=== PATIENT | male | born 1970 | race Caucasian/White ===

== ENCOUNTER 2018-08-05 05:31 | Inpatient (IN) | payer OTHER ==
[2018-07-31 16:58] VITALS: BMI 41.5
[~2018-08-05 05:31] MED LIST: BUPIVACAINE HCL/PF 0.25% (2.5MG/ML) 10 ML VIAL IJ ONE; BUPIVACAINE LIPOSOME/PF (EXPAREL) 266 MG/20 ML VIAL NR ONE
[2018-08-05] MEDS ORDERED: ceFAZolin SODIUM 1 GM VIAL ONE ×4 (07:16→18:06)
[2018-08-05] MEDS ORDERED: GENTAMICIN SO4 80 MG/2 ML VIAL ONE ×2 (07:16→12:21)
[2018-08-05] MEDS ORDERED: THROMBIN (BOVINE) 20,000 UNIT VIAL TP ONE (07:16)
[2018-08-05] MEDS ORDERED: MIDAZOLAM HCL 2 MG/2 ML SINGLE DOSE VIAL ONE (07:50)
--- NOTE | 2018-08-05 08:26 | HP ---
Language line was used for the following H&P #[id number] CHIEF COMPLAINT: Lumbar back pain, Right LE pain and paresthesias/weakness. PCP: Rashad Deng HISTORY OF PRESENT ILLNESS: 48yo male c/o Chronic progressive back pain x 10 years presents for elective surgery Patient had thoracic (T3-T5) and lumbar (L2 -L5) fusions @ [address] 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 He describes episodes of intermittent paresthesias and worsening weakness resulting in falls. He denies any bladder of bowel dysfunction. Recent Travel: none PAST MEDICAL HISTORY: none reported PAST SURGICAL HISTORY: T3-T 5 Fusion L2-L5 Fusion Social History: Smoking:none Alcohol:social Drugs: none Allergies No Known Allergies Allergy (Verified 08/05/18 06:31) HOME MEDICATIONS: Home Medications Medication Instructions Recorded NK [No Known Home Medication] 07/31/18 REVIEW OF SYSTEMS CONSTITUTIONAL: Absent: fever, chills, diaphoresis, generalized weakness, malaise, HEENT: Absent: rhinorrhea, nasal congestion, throat pain, throat swelling, difficulty swallowing, CARDIOVASCULAR: Absent: chest pain, syncope, palpitations, irregular heart rate, RESPIRATORY: Absent: cough, shortness of breath, dyspnea with exertion, orthopnea, GASTROINTESTINAL: Absent: abdominal pain, abdominal distension, nausea, vomiting, diarrhea, constipation, GENITOURINARY: Absent: dysuria, frequency, urgency, hesitancy MUSCULOSKELETAL: Absent: myalgia, arthralgia, joint swelling, SKIN: Absent: rash, itching, pallor HEMATOLOGIC/IMMUNOLOGIC: Absent: easy bleeding, easy bruising, ENDOCRINE: Absent: unexplained weight loss, heat intolerance, cold intolerance NEUROLOGIC: Absent: headache, + Right LE weakness and paresthesias, dizziness, unsteady gait, bladder or bowel incontinence PSYCHIATRIC: Absent: anxiety, depression, suicidal or homicidal ideation, hallucinations. PHYSICAL EXAMINATION Vital Signs - 24 hr 08/05/18 08/05/18 06:38 06:39 Temperature 98.2 F Pulse Rate 71 Respiratory 16 Rate Blood Pressure 125/79 O2 Sat by Pulse 99 Oximetry (%) GENERAL: Awake, alert, and fully oriented, in no acute distress. HEAD: Normal with no signs of trauma. EYES: extraocular movements intact, sclera anicteric, conjunctiva clear. No lid lag. EARS, NOSE, THROAT: Ears normal, nares patent, oropharynx clear without exudates. Moist mucous membranes. NECK: supple without lymphadenopathy, JVD, or masses. LUNGS: Breath sounds equal, clear to auscultation bilaterally. No wheezes, and no crackles. No accessory muscle use. HEART: normal S1 and S2 without murmur, rub or gallop. ABDOMEN: Obese, Soft, nontender, not distended, normoactive bowel sounds, MUSCULOSKELETAL: No bony deformities or tenderness. No CVA tenderness. UPPER EXTREMITIES: 2+ pulses, warm, well-perfused. No cyanosis. No clubbing. No peripheral edema. LOWER EXTREMITIES: 2+ pulses, warm, well-perfused. No calf tenderness. No peripheral edema, 5/5 dorsi/plantar flexion. Negative SLE B/L NEUROLOGICAL: Cranial nerves II-XII intact. Normal speech. PSYCHIATRIC: Cooperative. Good eye contact. Appropriate mood and affect. SKIN: Warm, dry, normal turgor, no rashes or lesions noted, normal capillary refill. Laboratory Results - last 24 hr 08/05/18 06:16 Blood Type O POSITIVE Antibody Screen Negative MRI and CT scans reviewed by Dr Cervantes in office reveal persist Thoracic spondylosis, calcified PLL and disc as as well as facet hypertrophy and coronal deformity. ASSESSMENT/PLAN: As discussed with Dr Cervantes in detail during pre-op visit on 07/23/18. DX:Thoracic splondylosis and Kyphosis Plan: Exploration of spinal fusion, removal or hardware and T3-T9 decompression (re-operative laminectomies and T3-T5) with multilevel transpedicle/ costovertebral decompressoin T67, T78, T89, Including complete decompression behind T7, osteotomies, and T3-T9 posterior instrumented fusion and deformity correction The R/B/A were discussed at length with the patient and his family and all questions were answered. The patient elected to proceed with the above mentioned procedure. Patient pre operative testing and clearance was preformed by Dr Mitchell- please see chart Problem List - Problem (1) Thoracic spondylosis Assessment/Plan: Patient denies any changes in health/ history since his pre-op visit with Dr Mitchell. Will proceed with the surgery as planned. Code(s): M47.814 - SPONDYLOSIS W/O MYELOPATHY OR RADICULOPATHY, THORACIC REGION Visit type - Emergency Visit Emergency Visit: No - New Patient This patient is new to me today: Yes Date on this admission: 08/05/18 - Critical Care Critical Care patient: No
[2018-08-05] MEDS ORDERED: fentaNYL CITRATE 250 MCG/5 ML VIAL ONE ×2 (08:34→09:26)
[2018-08-05] MEDS ORDERED: PROPOFOL 20 ML ONE ×2 (08:36)
[2018-08-05] MEDS ORDERED: ROCURONIUM BROMIDE 50 MG/5 ML VIAL ONE ×4 (08:36→12:15)
[2018-08-05] MEDS ORDERED: DEXAMETHASONE SOD PHOSPHATE 4 MG/1 ML VIAL ONE (08:36)
[2018-08-05] MEDS ORDERED: LIDOCAINE HCL/PF 2% SDV 5ML VIAL ONE (08:39)
[2018-08-05] MEDS ORDERED: VANCOMYCIN 1,000 MG VIAL (RESTRICTED TO ID ONLY) ONE (09:04)
[2018-08-05] MEDS ORDERED: LIDOCAINE 1%/EPI 1:100000 (20 ML MULTI DOSE VIAL) IJ ONE (09:06)
[2018-08-05] MEDS ORDERED: HYDROGEN PEROXIDE 473 ML PO ONE ×2 (09:33→11:55)
[2018-08-05] MEDS ORDERED: GELATIN, ABSORBABLE 12-7MM EACH SPONGE TP ONE (09:35)
[2018-08-05] MEDS ORDERED: GENTAMICIN SO4 80 MG/2 ML VIAL IVPB ONE ×2 (09:35→11:55)
[2018-08-05] MEDS ORDERED: BACITRACIN 50,000 UNITS VIAL TP ONE ×2 (09:35→11:55)
[2018-08-05] MEDS ORDERED: ceFAZolin SODIUM 1 GM VIAL IVPB ONE ×2 (09:38→11:38)
[2018-08-05] MEDS ORDERED: THROMBIN (BOVINE) 5,000 UNIT VIAL TP ONE (09:53)
[2018-08-05] MEDS ORDERED: BUPIVACAINE HCL/PF 0.25% (2.5MG/ML) 10 ML VIAL ONE (11:40)
[2018-08-05] MEDS ORDERED: BUPIVACAINE LIPOSOME/PF (EXPAREL) 266 MG/20 ML VIAL NR ONE ×2 (12:00→15:04)
[2018-08-05] MEDS ORDERED: GELATIN, ABSORBABLE 100 EACH SPONGE TP ONE (12:02)
[2018-08-05] MEDS ORDERED: BUPIVACAINE HCL/PF 0.25% (2.5MG/ML) 10 ML VIAL IJ ONE (15:04)
[2018-08-05] MEDS ORDERED: ONDANSETRON 4 MG/2 ML VIAL ONE (15:06)
[2018-08-05] MEDS ORDERED: NEOSTIGMINE METHYLSULFATE 0.5 MG/1 ML - 10 ML MDV ONE (15:23)
[2018-08-05] MEDS ORDERED: GLYCOPYRROLATE 0.2 MG/1 ML VIAL ONE (15:23)
[2018-08-05] MEDS ORDERED: ONDANSETRON 4 MG/2 ML VIAL IVPUSH PRN ×3 (16:07→16:33)
[2018-08-05] MEDS ORDERED: LACTATED RINGERS SOLUTION 1,000 ML IV SCH (16:15)
[2018-08-05] MEDS ORDERED: DEXAMETHASONE SOD PHOSPHATE 4 MG/1 ML VIAL IVPUSH PRN (16:21)
[2018-08-05] MEDS ORDERED: PROMETHAZINE HCL 25 MG/1 ML VIAL IVPB PRN (16:21)
[2018-08-05] MEDS ORDERED: HYDROmorphone HCl 2 MG/ML VIAL IVPUSH PRN (16:31)
[2018-08-05] MEDS ORDERED: HYDROmorphone *PCA* 10MG/50ML DISP.SYRIN PCA ONE (16:32)
[2018-08-05] MEDS ORDERED: diphenhydrAMINE HCL 25 MG CAPSULE (FP) PO PRN (16:33)
[2018-08-05] MEDS ORDERED: LORazepam 2 MG/ML SDV VIAL ONE (16:33)
[2018-08-05] MEDS: LORazepam 2 MG/ML SDV VIAL IVPUSH PRN ×2 (16:35→16:45)
[2018-08-05] MEDS: HYDROmorphone *PCA* 10MG/50ML DISP.SYRIN PCA SCH (17:00)
[2018-08-05] MEDS: HEPARIN NA (PORCINE) 5,000 UNITS/ML 1ML VIAL SQ SCH (22:56)
[2018-08-05] MEDS: DOCUSATE SODIUM 100 MG CAPSULE (FP) PO SCH (22:56)
[2018-08-06] MEDS: HEPARIN NA (PORCINE) 5,000 UNITS/ML 1ML VIAL SQ SCH ×3 (05:47→21:57)
[2018-08-06] MEDS: LACTATED RINGERS SOLUTION 1,000 ML/1,000 ML INFUS.BAG IV SCH ×2 (05:47→17:55)
[2018-08-06] MEDS: DOCUSATE SODIUM 100 MG CAPSULE (FP) PO SCH ×3 (05:47→21:57)
[2018-08-06] MEDS ORDERED: DEXTROSE 5%-WATER - 50 ML IVPB ONE ×3 (06:09→17:28)
[2018-08-06] MEDS ORDERED: ceFAZolin SODIUM 1 GM VIAL ONE ×3 (06:09→17:28)
[2018-08-06] MEDS: CEFAZOLIN 1 GM in DEXTROSE 5%-WATER - 50 ML IVPB SCH ×5 (06:12→17:56)
[2018-08-06 07:54] LABS: HEMATOCRIT 31.1 % (35.4-49); HEMOGLOBIN 10.5 GM/dL (11.7-16.9); MCH 30.2 pg (25.7-33.7); MCHC 33.6 g/dl (32.0-35.9); MEAN CELL VOLUME 89.7 fl (80-96); MEAN PLT VOLUME 10.8 fl (7.5-11.1); PLATELET COUNT 133 K/MM3 (134-434); RBC 3.47 M/mm3 (4.00-5.60); RDW 13.7 % (11.9-15.9); WHITE BLOOD COUNT 7.8 K/mm3 (4.0-10.0)
[2018-08-06 08:36] LABS: BLOOD UREA NITROGEN 15 mg/dL (7-18); CO2 30 mmol/L (21-32); POTASSIUM 4.2 mmol/L (3.5-5.1)
--- NOTE | 2018-08-06 08:53 | PN ---
Progress Note (short form) - Note Progress Note: Surgery POD#1 Exploration of spinal fusion, removal or hardware and T3-T9 decompression (re-operative laminectomies and T3-T5) with multilevel transpedicle/costovertebral decompressoin T67, T78, T89, Including complete decompression behind T7, osteotomies, and T3-T9 posterior instrumented fusion and deformity correction patient seen and examined at bedside. He c/o right shoulder discomfort and abdominal/gas pain. He tolerated his clear diet and denies any nausea or vomiting. He denies any UE radiculopathy, new LE radiculopathy or paresthesias, Headache, fever, chills, CP, SOB, or blurred vision. He still has the robins. Vital Signs Temp 98.1 F 08/06/18 10:00 Pulse 92 H 08/06/18 10:00 Resp 18 08/06/18 10:00 BP 136/82 08/06/18 10:00 Pulse Ox 99 08/06/18 09:00 Intake & Output 08/05/18 08/06/18 08/06/18 23:59 11:59 23:59 Intake Total 1175 380 Output Total 1585 620 Balance -410 -240 Intake: IV 1175 LACTATED RINGERS SOLUTION 375 1,000 ml In 1,000 ml @ 125 mls/hr IV ASDIR [facility] Rx#:[id number] Oral 380 Output: Drainage 285 220 Medial Back 110 220 Urine 1300 400 Robins 600 400 Other: Voiding Method Indwelling Catheter Urinal CBC, BMP Abnormal Lab Results 08/06/18 08/06/18 06:30 06:30 RBC 3.47 L Hgb 10.5 L Hct 31.1 L D Plt Count 133 L D Anion Gap 7 L Calcium 7.8 L AST 134 H Total Protein 5.8 L Albumin 3.2 L PE: A&Ox3, NAD Unlabored resp on RA Right shoulder no evidence of erythema, edema or eccymosis. TTP over anterior aspect, active forward elevation to @90 degrees limited by pain blocking, PROM forward elevation to 120 degrees, mild ttp over a/c joint. PROM abduction to 130 degrees with some pain blocking. no apprehension or laxity on exam. spine dressing c/d/i with aquacell dressing, flat with surrounding tissue intact , no evidence of tracking erythema, edema, or collection. Drain securely in place with bloody d/c-330cc post op. B/L LE Neg SLR, 5/5 quad strength, LE compartments soft, supple and non-tender with +2 DP pulsees, 5/5 dorsi/plantar flexion, sensation to light touch intact throughout. Problem List - Problems (1) Thoracic spondylosis Assessment/Plan: s/p T3-T9 lami/decompression and fusion. Patient doing well with right shoulder discomfort, stiffness, and gas pain possibly from length of anesthesia and positioning. 1) d/c robins with PVR, bladder scan. 2) OOB with TLSO brace adn PT 3) encourage ambulation and IS 4) Warm compress to right shoulder PRN encourage ROM 5) DVT prophylaxis 6) pain control Evaluation and plan discussed with Dr Cervantes Code(s): M47.814 - SPONDYLOSIS W/O MYELOPATHY OR RADICULOPATHY, THORACIC REGION
--- NOTE | 2018-08-06 08:58 | PN ---
Physical Exam: SUBJECTIVE: Patient seen and examined at the bedside. Resting comfortably, c/o of right shoulder pain and tenderness. also having abdominal pain/discomfort. no nausea/no vomiting. not yet passing gas. last bm yesterday OBJECTIVE: for shoulder discomfort, will order lidoderm patch for localized pain/ tenderness. no bruising noted. patient can move his arm but limited secondary to pain. for abdominal pain/discomfort. encourage pt to get oob to chair or ambulate with PT. simethicone ordered patient given and shown how to use incentive spirometer, encouraged to use it hourly. Vital Signs Period Temp Pulse Resp BP Sys/Augustin Pulse Ox Last 24 Hr 97.9 F-98.9 F 80-108 14-22 126-164/74-97 95-100 GENERAL: The patient is awake, alert, and fully oriented, in no acute distress. HEAD: Normal with no signs of trauma. EYES: PERRL, extraocular movements intact, sclera anicteric, conjunctiva clear. No ptosis. ENT: Ears normal, nares patent, oropharynx clear without exudates, moist mucous membranes. NECK: Trachea midline, full range of motion, supple. LUNGS: Breath sounds equal, clear to auscultation bilaterally HEART: Regular rate and rhythm ABDOMEN: soft, mildly tender to touch, no nausea or vomiting. monitor for now. encourage pt to get oob to chair. minimize use of narcotics as tolerated. EXTREMITIES: no edema. on SCDs, right arm tender to touch, likely secondary to prolonged surgery. lidoderm patch applied. NEUROLOGICAL: Normal speech, gait not observed. PSYCH: Normal mood, normal affect. SKIN: Warm, dry, normal turgor, no rashes or lesions noted Laboratory Results - last 24 hr 08/06/18 08/06/18 08/06/18 06:30 06:30 08:34 WBC 7.8 Cancelled Corrected WBC (auto) Cancelled RBC 3.47 L Cancelled Hgb 10.5 L Cancelled Hct 31.1 L D Cancelled MCV 89.7 Cancelled MCH 30.2 Cancelled MCHC 33.6 Cancelled RDW 13.7 Cancelled Plt Count 133 L D Cancelled MPV 10.8 Cancelled Absolute Neuts (auto) Cancelled Neutrophils % Cancelled Lymphocytes % Cancelled Monocytes % Cancelled Eosinophils % Cancelled Basophils % Cancelled Nucleated RBC % Cancelled Platelet Estimate Cancelled Platelet Comment Cancelled Sodium 136 Potassium 4.2 Chloride 99 Carbon Dioxide 30 Anion Gap 8 BUN 15 Creatinine 0.6 Creat Clearance w eGFR > 60 Random Glucose 99 Calcium 7.6 L Magnesium Total Bilirubin AST ALT Alkaline Phosphatase Total Protein Albumin 08/06/18 08:34 WBC Corrected WBC (auto) RBC Hgb Hct MCV MCH MCHC RDW Plt Count MPV Absolute Neuts (auto) Neutrophils % Lymphocytes % Monocytes % Eosinophils % Basophils % Nucleated RBC % Platelet Estimate Platelet Comment Sodium Cancelled Potassium Cancelled Chloride Cancelled Carbon Dioxide Cancelled Anion Gap Cancelled BUN Cancelled Creatinine Cancelled Creat Clearance w eGFR Cancelled Random Glucose Cancelled Calcium Cancelled Magnesium Cancelled Total Bilirubin Cancelled AST Cancelled ALT Cancelled Alkaline Phosphatase Cancelled Total Protein Cancelled Albumin Cancelled Active Medications Generic Name Dose Route Start Last Admin Trade Name Freq PRN Reason Stop Dose Admin Dexamethasone Sodium Phosphate 4 mg 08/05/18 16:21 Decadron Injection - IVPUSH ONCE PRN NAUSEA AND/OR VOMITING Diphenhydramine HCl 12.5 mg 08/05/18 16:21 Benadryl Injection - IVPUSH ONCE PRN FOR ITCHING Diphenhydramine HCl 25 mg 08/05/18 16:33 Benadryl - PO Q6H PRN FOR ITCHING Docusate Sodium 100 mg 08/05/18 22:00 08/06/18 05:47 Colace - PO 100 mg TID MENDY Administration Fentanyl 50 mcg 08/05/18 16:07 08/05/18 16:40 Sublimaze Injection - IVPUSH 50 mcg [id number] PRN Administration PAIN-PACU ORDER X 4 DOSES ONLY Ferrous Sulfate 325 mg 08/06/18 10:00 Feosol - PO DAILY MENDY Folic Acid 1 mg 08/06/18 10:00 Folic Acid - PO DAILY MENDY Heparin Sodium (Porcine) 5,000 unit 08/05/18 22:00 08/06/18 05:47 Heparin - SQ 5,000 unit TID MENDY Administration Hydromorphone HCl 10 mg 08/05/18 16:30 08/05/18 17:00 Dilaudid Administrative Sales Assistant - REBAR BENDER 08/12/18 16:21 10 mg REBAR BENDER MENDY Administration Protocol Hydromorphone HCl 2 mg 08/05/18 16:31 08/05/18 17:50 Dilaudid Vial - IVPUSH 08/06/18 16:30 0.4 mg ONCE PRN Administration PAIN-PACU Cefazolin Sodium 1 gm/ 50 mls @ 100 mls/hr 08/05/18 19:30 08/06/18 06:15 Dextrose IVPB Not Given Q8H-IV MENDY Lactated Ringer's 1,000 ml in 1,000 mls @ 125 mls/hr 08/05/18 16:45 08/06/18 05:47 Lactated Ringers Solution IV 125 mls/hr ASDIR MENDY Administration Influenza Virus Vaccine Quadrival 60 mcg 08/06/18 09:00 Flulaval Quad [id number] IM 08/06/18 09:01 .ONCE ONE Lorazepam 2 mg 08/05/18 16:32 08/05/18 16:45 Ativan Injection - IVPUSH 08/06/18 16:31 1 mg ONCE PRN Administration AGITATION Ondansetron HCl 4 mg 08/05/18 16:21 Zofran Injection IVPUSH Q4H PRN NAUSEA AND/OR VOMITING Ondansetron HCl 4 mg 08/05/18 16:33 Zofran Injection IVPUSH Q6H PRN NAUSEA Promethazine HCl 12.5 mg 08/05/18 16:21 Phenergan Injection - IVPB Q6H PRN NAUSEA AND/OR VOMITING Simethicone 80 mg 08/06/18 08:48 Mylicon - PO Q4H PRN GAS ASSESSMENT/PLAN: Patient is a 48 year old male with a past medical history of chronic progressive back pain. He presented on 08/05/2018 for elective back surgery and is POD #1 of exploration of spinal fusion, removal or hardware and T3-T9 decompression (re- operative laminectomies and T3-T5) with multilevel transpedicle/costovertebral decompressoin T67, T78, T89, complete decompression behind T7, osteotomies, and T3-T9 posterior instrumented fusion and deformity correction. Surgery: Back Surgery, POD#1 Post op monitoring Monitor labs, vitals signs, pain scale initiate bowel regimen monitor drain output pain management with dilaudid quality compliance consultant incentive spirometer q1 hours physical therapy fen: regular diet monitor electrolytes no ivf prophy: SCDs protonix simethicone full code Visit type - Emergency Visit Emergency Visit: Yes ED Registration Date: 08/05/18 Care time: The patient presented to the Emergency Department on the above date and was hospitalized for further evaluation of their emergent condition. - New Patient This patient is new to me today: Yes Date on this admission: 08/06/18 - Critical Care Critical Care patient: No - Discharge Referral Referred to [facility] No
[2018-08-06] MEDS ORDERED: FLU VACCINE QUAD 60 MCG/0.5 ML (MDV 18-19) IM ONE (09:00)
[2018-08-06 09:14] LABS: ALBUMIN 3.2 g/dl (3.4-5.0); ALK PHOS 85 U/L (45-117); ANION GAP 7 MMOL/L (8-16); BILIRUBIN,TOTAL 0.6 mg/dL (0.2-1); CALCIUM 7.8 mg/dL (8.5-10.1); CHLORIDE 100 mmol/L (98-107); CREATININE 0.7 mg/dL (0.55-1.3); GLUCOSE,RANDOM 102 mg/dL (74-106); MAGNESIUM 1.9 mg/dL (1.8-2.4); SGOT/AST 134 U/L (15-37); SGPT/ALT 57 U/L (13-61); SODIUM 137 mmol/L (136-145); TOT PROT 5.8 g/dl (6.4-8.2)
[2018-08-06] MEDS ORDERED: SIMETHICONE 80 MG TAB.CHEW (FP) PO ONE ×2 (09:23)
[2018-08-06] MEDS: FERROUS SO4 325 MG TABLET (FP) PO SCH (10:22)
[2018-08-06] MEDS: PANTOPRAZOLE 40 MG TABLET (FP) PO SCH (10:22)
[2018-08-06] MEDS: LIDOCAINE 5% TOPICAL PATCH TP SCH (10:22)
[2018-08-06] MEDS: FOLIC ACID 1 MG TABLET (FP) PO SCH (10:22)
[2018-08-06] MEDS: POLYETHYLENE GLYCOL 3350 119 GM BTL PO SCH (10:23)
[2018-08-06] MEDS: ACETAMINOPHEN 325 MG TABLET (FP) PO PRN (14:04)
[2018-08-06] MEDS: SIMETHICONE 80 MG TAB.CHEW (FP) PO PRN (14:05)
--- NOTE | 2018-08-06 14:27 | OP ---
Operative Note - Note: Operative Date: 08/05/18 Pre-Operative Diagnosis: splodylosis and kyphosis Operation: Exploration of spinal fusion, removal or hardware and T3-T9 decompression (re-operative laminectomies and T3-T5) with multilevel transpedicle/costovertebral decompressoin T67, T78, T89, Including complete decompression behind T7, osteotomies, and T3-T9 posterior instrumented fusion and deformity correction Post-Operative Diagnosis: Same as Pre-op Surgeon: Latrell Cervantes Strategy Execution Consultant: Nirali Wei Anesthesiologist/INFORMATION TECHNOLOGY INSTRUCTOR: Hussein Banks Anesthesia: General Estimated Blood Loss (mls): 400 Drains & Tubes with Location: J/P right mid back Drains, Volume Out (mls): 352 (robins) Fluid Volume Replaced (mls): 4,500
--- NOTE | 2018-08-06 16:06 | PN ---
Progress Note (short form) - Note Progress Note: Post op day#1.S/P T3-T9 Removal of hardware with revision of decompression and fusion under GA uneventful.Patient stable and c/o pain score of 4-5/10 while resting on Dilaudid RAILROAD REPAIRER.Will continue RAILROAD REPAIRER today and will f/u tomorrow.
[2018-08-06] MEDS: HYDROmorphone *PCA* 10MG/50ML DISP.SYRIN PCA SCH (17:54)
[2018-08-06] MEDS: LIDOCAINE PATCH REMOVAL MC SCH (21:57)
[2018-08-07] MEDS ORDERED: ceFAZolin SODIUM 1 GM VIAL ONE ×3 (01:35→17:33)
[2018-08-07] MEDS ORDERED: DEXTROSE 5%-WATER - 50 ML IVPB ONE ×3 (01:35→17:33)
[2018-08-07] MEDS: CEFAZOLIN 1 GM in DEXTROSE 5%-WATER - 50 ML IVPB SCH ×3 (02:19→17:56)
[2018-08-07] MEDS: HEPARIN NA (PORCINE) 5,000 UNITS/ML 1ML VIAL SQ SCH ×3 (05:33→22:13)
[2018-08-07] MEDS: DOCUSATE SODIUM 100 MG CAPSULE (FP) PO SCH ×3 (05:33→22:13)
[2018-08-07] MEDS: SIMETHICONE 80 MG TAB.CHEW (FP) PO PRN ×3 (05:36→22:23)
--- NOTE | 2018-08-07 08:58 | CON.ORTH ---
Consult Reason for Consultation:: right shoulder pain s/p revision thoracic spine surgery - Alcohol/Substance Use Hx Alcohol Use: Yes (social) - Smoking History Smoking history: Never smoked Home Medications - Allergies Allergies/Adverse Reactions: Allergies Allergy/AdvReac Type Severity Reaction Status Date / Time No Known Allergies Allergy Verified 08/05/18 06:31 - Home Medications Home Medications: Ambulatory Orders NK [No Known Home Medication] 07/31/18 Physical Exam for Ortho Vital Signs: Vital Signs Temperature 98.3 F 08/07/18 06:47 Pulse Rate 91 H 08/07/18 06:47 Respiratory Rate 20 08/07/18 06:47 Blood Pressure 130/65 08/07/18 06:47 O2 Sat by Pulse Oximetry (%) 99 08/06/18 21:00 Labs: CBC, BMP 08/06/18 08:34 08/06/18 08:34 - Upper Extremity Shoulder: Yes: Right, Other (mild ttp, ROM FF 170, ER 40, IR L5, neg empty can, - neer,-merchant, - obriens, -speeds/yerg, strength 5/5, nvi) Assessment/Plan 48 yo male s/p Exploration of spinal fusion, removal or hardware and T3-T9 decompression (re-operative laminectomies and T3-T5) with multilevel transpedicle/costovertebral decompressoin T67, T78, T89, Including complete decompression behind T7, osteotomies, and T3-T9 posterior instrumented fusion and deformity correction. c/o pain in right shoulder since the operation. Pt states that the pain is much improved today. Denies any h/o shoulder pain prior to the operation. Given complexity of the operation, pt was supine for a long period of time. a/p right shoulder pain- positional d/w with pt in detail, shoulder pain is much improved NTD orthopedically ROM exercises Pt can f/u as outpt if pain has not completely resolved over the next few weeks d/w Dr. Vo
[2018-08-07 09:21] LABS: BASO % 0.5 % (0-2.0); EOS % 0.3 % (0-4.5); HEMATOCRIT 30.8 % (35.4-49); HEMOGLOBIN 10.4 GM/dL (11.7-16.9); LYMPH % 19.5 % (8-40); MCHC 33.8 g/dl (32.0-35.9); MEAN PLT VOLUME 9.7 fl (7.5-11.1); MONO % 5.3 % (3.8-10.2); NEUT % 74.4 % (42.8-82.8); PLATELET COUNT 128 K/MM3 (134-434); RBC 3.46 M/mm3 (4.00-5.60); WHITE BLOOD COUNT 7.5 K/mm3 (4.0-10.0)
[2018-08-07] MEDS: LIDOCAINE 5% TOPICAL PATCH TP SCH (09:51)
[2018-08-07] MEDS: FOLIC ACID 1 MG TABLET (FP) PO SCH (09:52)
[2018-08-07] MEDS: PANTOPRAZOLE 40 MG TABLET (FP) PO SCH (09:52)
[2018-08-07] MEDS: FERROUS SO4 325 MG TABLET (FP) PO SCH (09:52)
[2018-08-07] MEDS: POLYETHYLENE GLYCOL 3350 119 GM BTL PO SCH (09:54)
[2018-08-07 10:05] LABS: ALBUMIN 3.3 g/dl (3.4-5.0); ALK PHOS 84 U/L (45-117); ANION GAP 7 MMOL/L (8-16); BILIRUBIN,TOTAL 0.6 mg/dL (0.2-1); BLOOD UREA NITROGEN 12 mg/dL (7-18); CALCIUM 7.9 mg/dL (8.5-10.1); CHLORIDE 100 mmol/L (98-107); CO2 29 mmol/L (21-32); CREATININE 0.8 mg/dL (0.55-1.3); GLUCOSE,RANDOM 132 mg/dL (74-106); MAGNESIUM 2.2 mg/dL (1.8-2.4); POTASSIUM 3.7 mmol/L (3.5-5.1); SGOT/AST 115 U/L (15-37); SGPT/ALT 54 U/L (13-61); SODIUM 135 mmol/L (136-145); TOT PROT 6.4 g/dl (6.4-8.2)
--- NOTE | 2018-08-07 11:24 | PN ---
Progress Note (short form) - Note Progress Note: Anesthesia/pain Pt seen and examined S:Alert and awake mild discomfort O: Vital Signs Temperature 98.3 F 08/07/18 06:47 Pulse Rate 91 H 08/07/18 06:47 Respiratory Rate 20 08/07/18 06:47 Blood Pressure 130/65 08/07/18 06:47 O2 Sat by Pulse Oximetry (%) 99 08/06/18 21:00 CBC, BMP 08/07/18 09:15 08/07/18 09:15 A/P Current Active Problems Thoracic spondylosis (Acute) s/pT3-T9 removal of hardware/correction and fusion Doing well post op Continue current care Continue ELECTRIC SIGN WIRER Que Conti MD
[2018-08-07] MEDS: HYDROmorphone *PCA* 10MG/50ML DISP.SYRIN PCA SCH ×2 (11:44→17:57)
--- NOTE | 2018-08-07 12:24 | PN ---
Physical Exam: SUBJECTIVE: Patient seen at the bedside. family present. sitting in chair. c/o of constipation and bloating, no nausea or vomiting. OBJECTIVE: right shoulder pain improved with lidoderm patch. seen by ortho. constipation: ordered dulcolax po and dulcolax pr. if not working will give mag citrate. Vital Signs Period Temp Pulse Resp BP Sys/Augustin Pulse Ox Last 24 Hr 98 F-99.2 F 88-117 18-20 121-140/65-84 99 GENERAL: The patient is awake, alert, and fully oriented, in no acute distress. HEAD: Normal with no signs of trauma. EYES: PERRL, extraocular movements intact, sclera anicteric, conjunctiva clear. No ptosis. ENT: Ears normal, nares patent, oropharynx clear without exudates, moist mucous membranes. NECK: Trachea midline, full range of motion, supple. LUNGS: Breath sounds equal, clear to auscultation bilaterally HEART: Regular rate and rhythm ABDOMEN: soft, mildly tender to touch, no nausea or vomiting. monitor for now. encourage pt to get oob to chair. minimize use of narcotics as tolerated. EXTREMITIES: no edema. on SCDs, right arm tender to touch, likely secondary to prolonged surgery. lidoderm patch applied. NEUROLOGICAL: Normal speech, gait not observed. PSYCH: Normal mood, normal affect. SKIN: Warm, dry, normal turgor, no rashes or lesions noted Laboratory Results - last 24 hr 08/06/18 08/07/18 08/07/18 06:30 09:15 09:15 WBC 7.5 RBC 3.46 L Hgb 10.4 L Hct 30.8 L MCV 89.0 MCH 30.0 MCHC 33.8 RDW 14.0 Plt Count 128 L MPV 9.7 D Absolute Neuts (auto) 5.5 Total Counted 100 Neutrophils % No Result Required. 74.4 Neutrophils % (Manual) 73.0 Band Neutrophils % 2.0 Lymphocytes % No Result Required. 19.5 D Lymphocytes % (Manual) 19.0 Monocytes % 5.3 Monocytes % (Manual) 6 Eosinophils % 0.3 D Basophils % 0.5 Nucleated RBC % 0 Sodium 135 L Potassium 3.7 Chloride 100 Carbon Dioxide 29 Anion Gap 7 L BUN 12 Creatinine 0.8 Creat Clearance w eGFR > 60 Random Glucose 132 H Calcium 7.9 L Magnesium 2.2 Total Bilirubin 0.6 AST 115 H ALT 54 Alkaline Phosphatase 84 Total Protein 6.4 Albumin 3.3 L Active Medications Generic Name Dose Route Start Last Admin Trade Name Shannon PRN Reason Stop Dose Admin Acetaminophen 650 mg 08/06/18 09:26 08/06/18 14:04 Tylenol - PO 650 mg Q6H PRN Administration PAIN LEVEL 4 - 6 Dexamethasone Sodium Phosphate 4 mg 08/05/18 16:21 Decadron Injection - IVPUSH ONCE PRN NAUSEA AND/OR VOMITING Diphenhydramine HCl 12.5 mg 08/05/18 16:21 Benadryl Injection - IVPUSH ONCE PRN FOR ITCHING Diphenhydramine HCl 25 mg 08/05/18 16:33 Benadryl - PO Q6H PRN FOR ITCHING Docusate Sodium 100 mg 08/05/18 22:00 08/07/18 05:33 Colace - PO 100 mg TID MENDY Administration Fentanyl 50 mcg 08/05/18 16:07 08/05/18 16:40 Sublimaze Injection - IVPUSH 50 mcg [id number] PRN Administration PAIN-PACU ORDER X 4 DOSES ONLY Ferrous Sulfate 325 mg 08/06/18 10:00 08/07/18 09:52 Feosol - PO 325 mg DAILY MENDY Administration Folic Acid 1 mg 08/06/18 10:00 08/07/18 09:52 Folic Acid - PO 1 mg DAILY MENDY Administration Heparin Sodium (Porcine) 5,000 unit 08/05/18 22:00 08/07/18 05:33 Heparin - SQ 5,000 unit TID MENDY Administration Hydromorphone HCl 10 mg 08/05/18 16:30 08/07/18 11:44 Dilaudid Sales Correspondent - RECEPTIONIST NURSE 08/12/18 16:21 Not Given RECEPTIONIST NURSE [facility] Protocol Cefazolin Sodium 1 gm/ 50 mls @ 100 mls/hr 08/05/18 19:30 08/07/18 09:52 Dextrose IVPB 100 mls/hr Q8H-IV MENDY Administration Lactated Ringer's 1,000 ml in 1,000 mls @ 125 mls/hr 08/05/18 16:45 08/06/18 17:55 Lactated Ringers Solution IV 125 mls/hr ASDIR MENDY Administration Lidocaine 1 patch 08/06/18 10:00 08/07/18 09:51 Lidoderm Patch - TP 1 patch DAILY MENDY Administration Miscellaneous 1 each 08/06/18 22:00 08/06/18 21:57 Lidoderm Patch Removal MC Not Given DAILY@2200 MENDY Ondansetron HCl 4 mg 08/05/18 16:21 Zofran Injection IVPUSH Q4H PRN NAUSEA AND/OR VOMITING Ondansetron HCl 4 mg 08/05/18 16:33 Zofran Injection IVPUSH Q6H PRN NAUSEA Pantoprazole Sodium 40 mg 08/06/18 10:00 08/07/18 09:52 Protonix - PO 40 mg DAILY MENDY Administration Polyethylene Glycol 17 gm 08/06/18 10:00 08/07/18 09:54 Miralax (For Daily Use) - PO 17 gm DAILY MENDY Administration Promethazine HCl 12.5 mg 08/05/18 16:21 Phenergan Injection - IVPB Q6H PRN NAUSEA AND/OR VOMITING Simethicone 80 mg 08/06/18 08:48 08/07/18 05:36 Mylicon - PO 80 mg Q4H PRN Administration GAS ASSESSMENT/PLAN: Patient is a 48 year old male with a past medical history of chronic progressive back pain. He presented on 08/05/2018 for elective back surgery and is POD #2 of exploration of spinal fusion, removal or hardware and T3-T9 decompression (re- operative laminectomies and T3-T5) with multilevel transpedicle/costovertebral decompressoin T67, T78, T89, complete decompression behind T7, osteotomies, and T3-T9 posterior instrumented fusion and deformity correction. Surgery: Back Surgery, POD#2 Post op monitoring, vitals and labs stable. c/o of constipation. dulcolax po and pr ordered. will give one dose of mag citrate. pain management with dilaudid linen clerk, consider transitioning off linen clerk to oral pain meds. incentive spirometer q1 hours physical therapy Right shoulder pain, improved lidoderm applied to right upper shoulder, pt states pain improved. seen by ortho, no new interventions at this time. encourage PT with upper arm ROM exercises. fen: regular diet monitor electrolytes no ivf prophy: SCDs protonix simethicone full code Visit type - Emergency Visit Emergency Visit: Yes ED Registration Date: 08/05/18 Care time: The patient presented to the Emergency Department on the above date and was hospitalized for further evaluation of their emergent condition. - New Patient This patient is new to me today: No - Critical Care Critical Care patient: No - Discharge Referral Referred to [facility] No
--- NOTE | 2018-08-07 12:28 | PN ---
Progress Note (short form) - Note Progress Note: 48M s/p T3-T9 fusion, POD 2. Pt seen and examined at bedside. Pt states that his back pain is well controlled. Denies weakness or numbness. Pt only complaining of some diffuse abd pain. States has not had BM since Saturday. Denies fever, chills, n/v. Last Vital Signs Temp Pulse Resp BP Pulse Ox 98.3 F 91 H 20 130/65 99 08/07/18 06:47 08/07/18 06:47 08/07/18 06:47 08/07/18 06:47 08/06/18 21:00 CBC, BMP 08/07/18 09:15 08/07/18 09:15 PE: Gen: A&O X3 Resp: breathing comfortably Abd: soft, mild distension, mild diffuse tenderness Back: incision clean and dry, no erythema. Drain in place with serosanguinous drainage. Output: 320ml Neuro: no weakness, or numbness. Strength 5/5 <Addison Lee - Last Filed: 08/07/18 12:17> - Note Progress Note: Agree with above. Right Shoulder significantly improved. -Laxatives to help with BM -encouraged PO intake -OOB and ambulate with assist/PT -GI/DVT prophylaxis -continue MAURICIO -wean BILINGUAL TEACHER/narcotics -Ortho consult appreciated <Latrell Cervantes - Last Filed: 08/07/18 14:11> Problem List - Problems (1) Thoracic spondylosis Assessment/Plan: Plan -abd pain most likely due to constipation, consider increasing bowel regiment and d/c BILINGUAL TEACHER -appreciate med recs for abd pain -OOB/ambulate with PT -dvt ppx -continue monitor drain output Code(s): M47.814 - SPONDYLOSIS W/O MYELOPATHY OR RADICULOPATHY, THORACIC REGION <Addison Lee - Last Filed: 08/07/18 12:17>
[2018-08-07] MEDS ORDERED: BISACODYL 5 MG TABLET.DR (FP) PO ONE (12:31)
[2018-08-07] MEDS ORDERED: BISACODYL 10 MG SUPP.RECT RC ONE (12:31)
[2018-08-07] MEDS ORDERED: MAGNESIUM CITRATE 300 ML BOTTLE PO ONE (16:00)
[2018-08-07] MEDS: LACTATED RINGERS SOLUTION 1,000 ML/1,000 ML INFUS.BAG IV SCH (17:56)
[2018-08-07] MEDS: LIDOCAINE PATCH REMOVAL MC SCH (22:13)
[2018-08-08] MEDS ORDERED: ceFAZolin SODIUM 1 GM VIAL ONE ×3 (01:10→17:33)
[2018-08-08] MEDS ORDERED: DEXTROSE 5%-WATER - 50 ML IVPB ONE ×3 (01:11→17:33)
[2018-08-08] MEDS: CEFAZOLIN 1 GM in DEXTROSE 5%-WATER - 50 ML IVPB SCH ×3 (01:30→18:35)
[2018-08-08] MEDS: DOCUSATE SODIUM 100 MG CAPSULE (FP) PO SCH ×3 (05:31→21:16)
[2018-08-08] MEDS: HEPARIN NA (PORCINE) 5,000 UNITS/ML 1ML VIAL SQ SCH ×3 (05:31→21:16)
--- NOTE | 2018-08-08 08:25 | PN ---
Progress Note (short form) - Note Progress Note: Pain Follow up Patient is using SPIKE DRIVER, infrequently. Eating well. No N/V. Pain is bearable. A/P Discontinue the SPIKE DRIVER. Shawna Saleem MD.
[2018-08-08] MEDS ORDERED: oxyCODONE HCL 5 MG TABLET PO PRN (08:55)
[2018-08-08] MEDS: POLYETHYLENE GLYCOL 3350 119 GM BTL PO SCH (10:13)
[2018-08-08] MEDS: LIDOCAINE 5% TOPICAL PATCH TP SCH (10:13)
[2018-08-08] MEDS: PANTOPRAZOLE 40 MG TABLET (FP) PO SCH (10:13)
[2018-08-08] MEDS: FERROUS SO4 325 MG TABLET (FP) PO SCH (10:13)
[2018-08-08 10:25] LABS: BASO % 0.4 % (0-2.0); EOS % 1.3 % (0-4.5); HEMATOCRIT 30.4 % (35.4-49); HEMOGLOBIN 10.1 GM/dL (11.7-16.9); LYMPH % 27.3 % (8-40); MCH 29.6 pg (25.7-33.7); MCHC 33.1 g/dl (32.0-35.9); MEAN CELL VOLUME 89.4 fl (80-96); MEAN PLT VOLUME 9.9 fl (7.5-11.1); MONO % 7.7 % (3.8-10.2); NEUT % 63.3 % (42.8-82.8); PLATELET COUNT 129 K/MM3 (134-434); RDW 14.2 % (11.9-15.9); WHITE BLOOD COUNT 6.5 K/mm3 (4.0-10.0)
[2018-08-08 11:02] LABS: ALBUMIN 3.1 g/dl (3.4-5.0); ALK PHOS 77 U/L (45-117); ANION GAP 9 MMOL/L (8-16); BILIRUBIN,TOTAL 0.5 mg/dL (0.2-1); BLOOD UREA NITROGEN 13 mg/dL (7-18); CHLORIDE 98 mmol/L (98-107); CO2 28 mmol/L (21-32); CREATININE 0.8 mg/dL (0.55-1.3); GLUCOSE,RANDOM 101 mg/dL (74-106); MAGNESIUM 2.2 mg/dL (1.8-2.4); POTASSIUM 3.5 mmol/L (3.5-5.1); SGOT/AST 71 U/L (15-37); SGPT/ALT 46 U/L (13-61); SODIUM 135 mmol/L (136-145); TOT PROT 6.5 g/dl (6.4-8.2)
--- NOTE | 2018-08-08 13:22 | PN ---
Progress Note (short form) - Note Progress Note: Surgery POD#3 Exploration of spinal fusion, removal or hardware and T3-T9 decompression (re-operative laminectomies and T3-T5) with multilevel transpedicle/costovertebral decompressoin T67, T78, T89, Including complete decompression behind T7, osteotomies, and T3-T9 posterior instrumented fusion and deformity correction patient seen and examined at bedside. He says his right shoulder discomfort continues to improve. He still has lots of gas and abdominal pain but he has been eating, passing gas and had a normal BM yesterday. He denies any UE radiculopathy, new LE radiculopathy or paresthesias , Headache, fever, chills, CP, SOB, or blurred vision. He is voiding without limitation and his post void bladder scan was negative for retained urine according to nursing. Vital Signs Temp 98.7 F 08/08/18 10:00 Pulse 86 08/08/18 10:00 Resp 18 08/08/18 10:00 BP 119/69 08/08/18 10:00 Pulse Ox 99 08/06/18 21:00 Intake & Output 08/07/18 08/08/18 08/08/18 23:59 11:59 23:59 Intake Total 650 450 380 Output Total 400 100 Balance 250 350 380 Intake: IV 450 LACTATED RINGERS SOLUTION 450 1,000 ml In 1,000 ml @ 125 mls/hr IV ASDIR REPLACED BY [facility] Rx#:[id number] IVPB 200 50 Oral 400 380 Output: Drainage 400 100 Medial Back 400 100 Other: Voiding Method Toilet Toilet CBC, BMP 08/08/18 09:52 08/08/18 09:52 PE: A&Ox3, NAD Unlabored resp on RA b/l UE 5/5 strength at deltoids, biceps/triceps and gripping strength. ABD: Obese, distended with diffuse TTP throughout. b/l LE 5/5 on resisted quad testing 3/5 right hamstring vs 5/5 left hamstring, 5 /5 dorsi/plantar flexion. LE compartments soft, supple and non-tender with + DP pulses. spine incision c/d/i with dermabond (no jane) flat with surrounding tissue intact, no evidence of tracking erythema, edema, or collection. Drain securely in place with SS d/c-700cc/24hr Problem List - Problems (1) Thoracic spondylosis Assessment/Plan: s/p T3-T9 lami/decompression and fusion. Patient doing well with continue gas pain, eating and moving bowels, no evidence of obstruction clinically. 1) MAURICIO drain to bile bag- will encourage reduction in drainage 2) d/c PAC start oral pain meds 3) KUB x-ray to evaluate abdominal pain-likely constipation 4) Fleet enema, encourage po intake 5) OOB with TLSO brace adn PT 6) encourage ambulation and IS 7) DVT prophylaxis 8) pain control Evaluation and plan discussed with Dr Cervantes Code(s): M47.814 - SPONDYLOSIS W/O MYELOPATHY OR RADICULOPATHY, THORACIC REGION
--- NOTE | 2018-08-08 13:51 | PN ---
Physical Exam: SUBJECTIVE: Patient seen and examined OBJECTIVE: right shoulder pain improved had bm yesterday refused mag citrate yesterday, willing to take today Vital Signs Period Temp Pulse Resp BP Sys/Augutsin Pulse Ox Last 24 Hr 98 F-98.7 F 83-94 18-20 114-127/51-79 GENERAL: The patient is awake, alert, and fully oriented, in no acute distress. HEAD: Normal with no signs of trauma. EYES: PERRL, extraocular movements intact, sclera anicteric, conjunctiva clear. No ptosis. ENT: Ears normal, nares patent, oropharynx clear without exudates, moist mucous membranes. NECK: Trachea midline, full range of motion, supple. LUNGS: Breath sounds equal, clear to auscultation bilaterally HEART: Regular rate and rhythm ABDOMEN: soft, mildly tender to touch, no nausea or vomiting. encourage pt to get oob to chair. minimize use of narcotics as tolerated. EXTREMITIES: no edema. right arm no longer painful or tender. lidoderm patch helping. NEUROLOGICAL: Normal speech, gait not observed. PSYCH: Normal mood, normal affect. SKIN: Warm, dry, normal turgor, no rashes or lesions noted Laboratory Results - last 24 hr 08/08/18 08/08/18 09:52 09:52 WBC 6.5 RBC 3.40 L Hgb 10.1 L Hct 30.4 L MCV 89.4 MCH 29.6 MCHC 33.1 RDW 14.2 Plt Count 129 L MPV 9.9 Absolute Neuts (auto) 4.1 Neutrophils % 63.3 Lymphocytes % 27.3 D Monocytes % 7.7 Eosinophils % 1.3 D Basophils % 0.4 Nucleated RBC % 0 Sodium 135 L Potassium 3.5 Chloride 98 Carbon Dioxide 28 Anion Gap 9 BUN 13 Creatinine 0.8 Creat Clearance w eGFR > 60 Random Glucose 101 Calcium 8.0 L Magnesium 2.2 Total Bilirubin 0.5 AST 71 H ALT 46 Alkaline Phosphatase 77 Total Protein 6.5 Albumin 3.1 L Active Medications Generic Name Dose Route Start Last Admin Trade Name Freq PRN Reason Stop Dose Admin Acetaminophen 650 mg 08/06/18 09:26 08/06/18 14:04 Tylenol - PO 650 mg Q6H PRN Administration PAIN LEVEL 4 - 6 Dexamethasone Sodium Phosphate 4 mg 08/05/18 16:21 Decadron Injection - IVPUSH ONCE PRN NAUSEA AND/OR VOMITING Diphenhydramine HCl 12.5 mg 08/05/18 16:21 Benadryl Injection - IVPUSH ONCE PRN FOR ITCHING Diphenhydramine HCl 25 mg 08/05/18 16:33 Benadryl - PO Q6H PRN FOR ITCHING Docusate Sodium 100 mg 08/05/18 22:00 08/08/18 05:31 Colace - PO 100 mg TID MENDY Administration Fentanyl 50 mcg 08/05/18 16:07 08/05/18 16:40 Sublimaze Injection - IVPUSH 50 mcg [id number] PRN Administration PAIN-PACU ORDER X 4 DOSES ONLY Ferrous Sulfate 325 mg 08/06/18 10:00 08/08/18 10:13 Feosol - PO 325 mg DAILY MENDY Administration Folic Acid 1 mg 08/06/18 10:00 08/07/18 09:52 Folic Acid - PO 1 mg DAILY MENDY Administration Heparin Sodium (Porcine) 5,000 unit 08/05/18 22:00 08/08/18 05:31 Heparin - SQ 5,000 unit TID MENDY Administration Cefazolin Sodium 1 gm/ 50 mls @ 100 mls/hr 08/05/18 19:30 08/08/18 10:13 Dextrose IVPB 100 mls/hr Q8H-IV MENDY Administration Lactated Ringer's 1,000 ml in 1,000 mls @ 125 mls/hr 08/05/18 16:45 08/07/18 17:56 Lactated Ringers Solution IV Not Given ASDIR MENDY Lidocaine 1 patch 08/06/18 10:00 08/08/18 10:13 Lidoderm Patch - TP 1 patch DAILY MENDY Administration Magnesium Citrate 300 ml 08/08/18 13:48 Citroma - PO 08/08/18 13:49 ONCE ONE Miscellaneous 1 each 08/06/18 22:00 08/07/18 22:13 Lidoderm Patch Removal MC 1 each DAILY@2200 MENDY Administration Ondansetron HCl 4 mg 08/05/18 16:21 Zofran Injection IVPUSH Q4H PRN NAUSEA AND/OR VOMITING Ondansetron HCl 4 mg 08/05/18 16:33 Zofran Injection IVPUSH Q6H PRN NAUSEA Oxycodone HCl 5 mg 08/08/18 08:55 Roxicodone - PO Q4H PRN PAIN LEVEL 1-5 Oxycodone HCl 10 mg 08/08/18 08:57 Roxicodone - PO Q4H PRN PAIN LEVEL 6-10 Pantoprazole Sodium 40 mg 08/06/18 10:00 08/08/18 10:13 Protonix - PO 40 mg DAILY MENDY Administration Polyethylene Glycol 17 gm 08/06/18 10:00 08/08/18 10:13 Miralax (For Daily Use) - PO 17 gm DAILY MENDY Administration Promethazine HCl 12.5 mg 08/05/18 16:21 Phenergan Injection - IVPB Q6H PRN NAUSEA AND/OR VOMITING Simethicone 80 mg 08/06/18 08:48 08/07/18 22:23 Mylicon - PO 80 mg Q4H PRN Administration GAS ASSESSMENT/PLAN: Patient is a 48 year old male with a past medical history of chronic progressive back pain. He presented on 08/05/2018 for elective back surgery and is POD #3 of exploration of spinal fusion, removal or hardware and T3-T9 decompression (re- operative laminectomies and T3-T5) with multilevel transpedicle/costovertebral decompressoin T67, T78, T89, complete decompression behind T7, osteotomies, and T3-T9 posterior instrumented fusion and deformity correction. Surgery: Back Surgery, POD#3 Post op monitoring, vitals and labs stable. had bm yesterday, still c/o of constipation, will give mag citrate on oxycodone 5,10mg prn incentive spirometer q1 hours physical therapy Right shoulder pain, improved lidoderm applied to right upper shoulder, pt states pain improved. fen: regular diet monitor electrolytes no ivf prophy: SCDs protonix simethicone full code Visit type - Emergency Visit Emergency Visit: Yes ED Registration Date: 08/05/18 Care time: The patient presented to the Emergency Department on the above date and was hospitalized for further evaluation of their emergent condition. - New Patient This patient is new to me today: No - Critical Care Critical Care patient: No - Discharge Referral Referred to [facility] Med P.C.: No
[2018-08-08] MEDS ORDERED: MAGNESIUM CITRATE 300 ML BOTTLE PO ONE (14:00)
[2018-08-08] MEDS: FOLIC ACID 1 MG TABLET (FP) PO SCH (15:41)
--- NOTE | 2018-08-08 15:56 | PN ---
Progress Note (short form) - Note Progress Note: Surgery Abdominal x-ray revealed general diffuse distention, no obvious obstruction, no air fluid levels seen. Given patient is passing gas and had a normal BM yesterday also tolerating a regular diet, Abdominal symptoms likely 2/2 constipation. Will add fleet enema to bowel regimen and follow. Evaluation and plan discussed with Dr Cervantes. Problem List - Problems (1) Thoracic spondylosis Code(s): M47.814 - SPONDYLOSIS W/O MYELOPATHY OR RADICULOPATHY, THORACIC REGION
[2018-08-08] MEDS: oxyCODONE HCL 5 MG TABLET PO PRN ×2 (16:03→23:09)
[2018-08-08] MEDS: LACTATED RINGERS SOLUTION 1,000 ML/1,000 ML INFUS.BAG IV SCH (17:21)
--- NOTE | 2018-08-08 18:09 | PATH ---
Surgical Pathology Report Patient Name: NEVA FERRIS Med. Rec. #: [id number] /Age/Gender: 1970 (Age: 48) / M Account: [id number] Location: [facility] MED/SURG Taken: 08/06/2018 Received: 08/06/2018 Reported: 08/08/2018 Physicians: Latrell Vaca M.D. Specimen(s) Received FULL THICKNESS SKIN WIHT KELOID Clinical History Thoracic spondylosis, kyphosis Final Diagnosis FULL THICKNESS OF SKIN WITH KELOID, EXCISION: SEGMENT OF SKIN WITH KELOID. Electronically Signed Karthikeyan Johnston M.D. Gross Description Received in formalin labeled "full thickness skin with keloid," is a 9.5 x 1.7 cm min-brown, unoriented portion of skin excised to a depth of 2.4 cm. The epidermal surface displays an 8.5 cm linear, hypertrophied scar, consistent with a keloid. The base is inked green and the specimen is serially sectioned. [employer] sections are submitted in a 3 cassettes. /08/07/2018 [facility]08/07/2018
[2018-08-08] MEDS: LIDOCAINE PATCH REMOVAL MC SCH (21:18)
[2018-08-09] MEDS ORDERED: ceFAZolin SODIUM 1 GM VIAL ONE ×3 (01:12→18:43)
[2018-08-09] MEDS ORDERED: DEXTROSE 5%-WATER - 50 ML IVPB ONE ×3 (01:12→18:44)
[2018-08-09] MEDS: CEFAZOLIN 1 GM in DEXTROSE 5%-WATER - 50 ML IVPB SCH ×3 (01:16→18:51)
[2018-08-09] MEDS: oxyCODONE HCL 5 MG TABLET PO PRN ×2 (03:45→08:25)
[2018-08-09] MEDS: HEPARIN NA (PORCINE) 5,000 UNITS/ML 1ML VIAL SQ SCH ×3 (05:44→22:16)
[2018-08-09] MEDS: DOCUSATE SODIUM 100 MG CAPSULE (FP) PO SCH ×3 (05:45→22:14)
--- NOTE | 2018-08-09 08:27 | PN ---
Physical Exam: SUBJECTIVE: Patient seen and examined at the bedside. OBJECTIVE: in no acute distress.but c/o bilateral upper shoulder pain he attributes to sleeping. no back pain. abdominal pain improving. some constipation still, will give dulcolax pr and po Vital Signs Period Temp Pulse Resp BP Sys/Augustin Pulse Ox Last 24 Hr 98.1 F-98.7 F 74-89 18-20 116-135/65-75 96 GENERAL: The patient is awake, alert, and fully oriented, in no acute distress. HEAD: Normal with no signs of trauma. EYES: PERRL, extraocular movements intact, sclera anicteric, conjunctiva clear. No ptosis. ENT: Ears normal, nares patent, oropharynx clear without exudates, moist mucous membranes. NECK: Trachea midline, full range of motion, supple. LUNGS: Breath sounds equal, clear to auscultation bilaterally HEART: Regular rate and rhythm ABDOMEN: soft, mildly tender to touch, no nausea or vomiting. encourage pt to get oob to chair. minimize use of narcotics as tolerated. EXTREMITIES: no edema. right arm no longer painful or tender. lidoderm patch helping. NEUROLOGICAL: Normal speech, gait not observed. PSYCH: Normal mood, normal affect. SKIN: Warm, dry, normal turgor, no rashes or lesions notedLaboratory Results - last 24 hr 08/08/18 08/08/18 09:52 09:52 WBC 6.5 RBC 3.40 L Hgb 10.1 L Hct 30.4 L MCV 89.4 MCH 29.6 MCHC 33.1 RDW 14.2 Plt Count 129 L MPV 9.9 Absolute Neuts (auto) 4.1 Neutrophils % 63.3 Lymphocytes % 27.3 D Monocytes % 7.7 Eosinophils % 1.3 D Basophils % 0.4 Nucleated RBC % 0 Sodium 135 L Potassium 3.5 Chloride 98 Carbon Dioxide 28 Anion Gap 9 BUN 13 Creatinine 0.8 Creat Clearance w eGFR > 60 Random Glucose 101 Calcium 8.0 L Magnesium 2.2 Total Bilirubin 0.5 AST 71 H ALT 46 Alkaline Phosphatase 77 Total Protein 6.5 Albumin 3.1 L Active Medications Generic Name Dose Route Start Last Admin Trade Name Freq PRN Reason Stop Dose Admin Acetaminophen 650 mg 08/06/18 09:26 08/06/18 14:04 Tylenol - PO 650 mg Q6H PRN Administration PAIN LEVEL 4 - 6 Dexamethasone Sodium Phosphate 4 mg 08/05/18 16:21 Decadron Injection - IVPUSH ONCE PRN NAUSEA AND/OR VOMITING Diphenhydramine HCl 25 mg 08/05/18 16:33 Benadryl - PO Q6H PRN FOR ITCHING Docusate Sodium 100 mg 08/05/18 22:00 08/09/18 05:45 Colace - PO 100 mg TID MENDY Administration Ferrous Sulfate 325 mg 08/06/18 10:00 08/08/18 10:13 Feosol - PO 325 mg DAILY MENDY Administration Folic Acid 1 mg 08/06/18 10:00 08/08/18 15:41 Folic Acid - PO 1 mg DAILY MENDY Administration Heparin Sodium (Porcine) 5,000 unit 08/05/18 22:00 08/09/18 05:44 Heparin - SQ 5,000 unit TID MENDY Administration Cefazolin Sodium 1 gm/ 50 mls @ 100 mls/hr 08/05/18 19:30 08/09/18 01:16 Dextrose IVPB 100 mls/hr Q8H-IV MENDY Administration Lactated Ringer's 1,000 ml in 1,000 mls @ 125 mls/hr 08/05/18 16:45 08/08/18 17:21 Lactated Ringers Solution IV Not Given ASDIR MENDY Lidocaine 1 patch 08/06/18 10:00 08/08/18 10:13 Lidoderm Patch - TP 1 patch DAILY MENDY Administration Miscellaneous 1 each 08/06/18 22:00 08/08/18 21:18 Lidoderm Patch Removal MC 1 each DAILY@2200 MENDY Administration Ondansetron HCl 4 mg 08/05/18 16:33 Zofran Injection IVPUSH Q6H PRN NAUSEA Oxycodone HCl 5 mg 08/08/18 08:55 08/08/18 20:28 Roxicodone - PO 5 mg Q4H PRN Administration PAIN LEVEL 1-5 Oxycodone HCl 10 mg 08/08/18 08:57 08/09/18 08:25 Roxicodone - PO 10 mg Q4H PRN Administration PAIN LEVEL 6-10 Pantoprazole Sodium 40 mg 08/06/18 10:00 08/08/18 10:13 Protonix - PO 40 mg DAILY MENDY Administration Polyethylene Glycol 17 gm 08/06/18 10:00 11/16/18 10:13 Miralax (For Daily Use) - PO 17 gm DAILY MENDY Administration Promethazine HCl 12.5 mg 08/05/18 16:21 Phenergan Injection - IVPB Q6H PRN NAUSEA AND/OR VOMITING Simethicone 80 mg 08/06/18 08:48 08/07/18 22:23 Mylicon - PO 80 mg Q4H PRN Administration GAS ASSESSMENT/PLAN: Patient is a 48 year old male with a past medical history of chronic progressive back pain. He presented on 08/05/2018 for elective back surgery and is POD #4 of exploration of spinal fusion, removal or hardware and T3-T9 decompression (re- operative laminectomies and T3-T5) with multilevel transpedicle/costovertebral decompressoin T67, T78, T89, complete decompression behind T7, osteotomies, and T3-T9 posterior instrumented fusion and deformity correction. Surgery: Back Surgery, POD#4 Post op monitoring, vitals and labs stable., still c/o of constipation, will give dulcolax pr and po on oxycodone 5mg,10mg prn incentive spirometer q1 hours encouraged physical therapy Right shoulder pain, improved lidoderm applied to bilateral shoulders for discomfort fen: regular diet monitor electrolytes no ivf prophy: SCDs protonix simethicone full code Visit type - Emergency Visit Emergency Visit: Yes ED Registration Date: 08/05/18 Care time: The patient presented to the Emergency Department on the above date and was hospitalized for further evaluation of their emergent condition. - New Patient This patient is new to me today: No - Critical Care Critical Care patient: No - Discharge Referral Referred to [facility] Med P.C.: No
[2018-08-09] MEDS ORDERED: BISACODYL 10 MG SUPP.RECT PR ONE (08:50)
[2018-08-09] MEDS ORDERED: BISACODYL 5 MG TABLET.DR (FP) PO ONE (08:50)
[2018-08-09 08:53] LABS: BASO % 0.7 % (0-2.0); EOS % 2.4 % (0-4.5); HEMATOCRIT 29.5 % (35.4-49); HEMOGLOBIN 9.8 GM/dL (11.7-16.9); LYMPH % 28.7 % (8-40); MCH 29.8 pg (25.7-33.7); MCHC 33.2 g/dl (32.0-35.9); MEAN CELL VOLUME 89.5 fl (80-96); MEAN PLT VOLUME 9.4 fl (7.5-11.1); MONO % 8.8 % (3.8-10.2); NEUT % 59.4 % (42.8-82.8); PLATELET COUNT 164 K/MM3 (134-434); RDW 14.1 % (11.9-15.9); WHITE BLOOD COUNT 5.3 K/mm3 (4.0-10.0)
[2018-08-09 09:28] LABS: ALK PHOS 75 U/L (45-117); ANION GAP 8 MMOL/L (8-16); BILIRUBIN,TOTAL 0.4 mg/dL (0.2-1); BLOOD UREA NITROGEN 12 mg/dL (7-18); CALCIUM 7.9 mg/dL (8.5-10.1); CHLORIDE 98 mmol/L (98-107); CO2 31 mmol/L (21-32); CREATININE 0.9 mg/dL (0.55-1.3); GLUCOSE,RANDOM 97 mg/dL (74-106); POTASSIUM 3.9 mmol/L (3.5-5.1); SGOT/AST 49 U/L (15-37); SGPT/ALT 45 U/L (13-61); SODIUM 137 mmol/L (136-145); TOT PROT 6.4 g/dl (6.4-8.2)
[2018-08-09] MEDS: POLYETHYLENE GLYCOL 3350 119 GM BTL PO SCH (10:42)
[2018-08-09] MEDS: LIDOCAINE 5% TOPICAL PATCH TP SCH (10:44)
[2018-08-09] MEDS: FERROUS SO4 325 MG TABLET (FP) PO SCH (10:44)
[2018-08-09] MEDS: FOLIC ACID 1 MG TABLET (FP) PO SCH (10:44)
[2018-08-09] MEDS: PANTOPRAZOLE 40 MG TABLET (FP) PO SCH (10:44)
[2018-08-09] MEDS ORDERED: BENZOCAINE/MENTH/CETYLPYRD CL 1 EACH LOZENGE MM PRN (18:53)
[2018-08-09] MEDS: SENNOSIDES 8.6MG TABLET (FP) PO SCH (22:14)
[2018-08-09] MEDS: MELATONIN 5 MG TABLETS PO PRN (22:14)
[2018-08-09] MEDS: ACETAMINOPHEN 325 MG TABLET (FP) PO PRN (22:16)
[2018-08-09] MEDS: LIDOCAINE PATCH REMOVAL MC SCH (22:16)
[2018-08-10] MEDS ORDERED: DEXTROSE 5%-WATER - 50 ML IVPB ONE ×2 (00:54→10:17)
[2018-08-10] MEDS ORDERED: ceFAZolin SODIUM 1 GM VIAL ONE ×2 (00:54→10:17)
[2018-08-10] MEDS: CEFAZOLIN 1 GM in DEXTROSE 5%-WATER - 50 ML IVPB SCH ×2 (01:21→10:22)
[2018-08-10] MEDS: DOCUSATE SODIUM 100 MG CAPSULE (FP) PO SCH ×3 (06:34→21:24)
[2018-08-10] MEDS: HEPARIN NA (PORCINE) 5,000 UNITS/ML 1ML VIAL SQ SCH ×3 (06:34→21:25)
[2018-08-10] MEDS: PANTOPRAZOLE 40 MG TABLET (FP) PO SCH (10:22)
[2018-08-10] MEDS: LIDOCAINE 5% TOPICAL PATCH TP SCH (10:22)
[2018-08-10] MEDS: FERROUS SO4 325 MG TABLET (FP) PO SCH (10:22)
[2018-08-10] MEDS: FOLIC ACID 1 MG TABLET (FP) PO SCH (10:22)
[2018-08-10] MEDS: POLYETHYLENE GLYCOL 3350 119 GM BTL PO SCH (10:24)
[2018-08-10] MEDS ORDERED: MAGNESIUM CITRATE 300 ML BOTTLE PO ONE (11:41)
--- NOTE | 2018-08-10 11:42 | PN ---
Physical Exam: SUBJECTIVE: Patient seen and examined at the bedside. still having abdominal pain, but improved. bilateral shoulder pain improved. patient highly encouraged to ambulate more as this will help his constipation. OBJECTIVE: discharge planning drain to be removed tomorrow. discharge home tomorrow once cleared by surgery. Vital Signs Period Temp Pulse Resp BP Sys/Augustin Pulse Ox Last 24 Hr 98.1 F-98.9 F 63-77 18-20 101-137/60-71 100 GENERAL: awake, alert, in no acute distress. HEAD: Normal with no signs of trauma. EYES: PERRL, extraocular movements intact, sclera anicteric, conjunctiva clear. No ptosis. ENT: Ears normal, nares patent, oropharynx clear without exudates, moist mucous membranes. NECK: Trachea midline, full range of motion, supple. LUNGS: Breath sounds equal, clear to auscultation bilaterally HEART: Regular rate and rhythm ABDOMEN: soft, not tender to touch, no nausea or vomiting. encourage pt to get oob to chair. minimize use of narcotics as tolerated. ambulate more. EXTREMITIES: no edema. right arm no longer painful or tender. lidoderm patch helping. NEUROLOGICAL: Normal speech, gait not observed. PSYCH: Normal mood, normal affect. Active Medications Generic Name Dose Route Start Last Admin Trade Name Freq PRN Reason Stop Dose Admin Acetaminophen 650 mg 08/06/18 09:26 08/09/18 22:16 Tylenol - PO 650 mg Q6H PRN Administration PAIN LEVEL 4 - 6 Benzocaine/Menthol 1 each 08/09/18 18:53 Cepacol Lozenge - MM PRN PRN SORE THROAT Dexamethasone Sodium Phosphate 4 mg 08/05/18 16:21 Decadron Injection - IVPUSH ONCE PRN NAUSEA AND/OR VOMITING Diphenhydramine HCl 25 mg 08/05/18 16:33 Benadryl - PO Q6H PRN FOR ITCHING Docusate Sodium 100 mg 08/05/18 22:00 08/10/18 06:34 Colace - PO 100 mg TID MENDY Administration Ferrous Sulfate 325 mg 08/06/18 10:00 08/10/18 10:22 Feosol - PO 325 mg DAILY MENDY Administration Folic Acid 1 mg 08/06/18 10:00 08/10/18 10:22 Folic Acid - PO 1 mg DAILY MENDY Administration Heparin Sodium (Porcine) 5,000 unit 08/05/18 22:00 08/10/18 06:34 Heparin - SQ 5,000 unit TID MENDY Administration Lactated Ringer's 1,000 ml in 1,000 mls @ 125 mls/hr 08/05/18 16:45 08/08/18 17:21 Lactated Ringers Solution IV Not Given ASDIR MENDY Lidocaine 2 patch 08/09/18 08:50 08/10/18 10:22 Lidoderm Patch - TP 2 patch DAILY MENDY Administration Magnesium Citrate 300 ml 08/10/18 11:41 Citroma - PO 08/10/18 11:42 ONCE ONE Melatonin 5 mg 08/09/18 08:49 08/09/18 22:14 Melatonin PO 5 mg HS PRN Administration INSOMNIA Miscellaneous 1 each 08/06/18 22:00 08/09/18 22:16 Lidoderm Patch Removal MC 1 each DAILY@2200 MENDY Administration Ondansetron HCl 4 mg 08/05/18 16:33 08/10/18 08:58 Zofran Injection IVPUSH 4 mg Q6H PRN Administration NAUSEA Oxycodone HCl 5 mg 08/08/18 08:55 08/08/18 20:28 Roxicodone - PO 5 mg Q4H PRN Administration PAIN LEVEL 1-5 Oxycodone HCl 10 mg 08/08/18 08:57 08/09/18 08:25 Roxicodone - PO 10 mg Q4H PRN Administration PAIN LEVEL 6-10 Pantoprazole Sodium 40 mg 08/06/18 10:00 08/10/18 10:22 Protonix - PO 40 mg DAILY MENDY Administration Polyethylene Glycol 17 gm 08/06/18 10:00 08/10/18 10:24 Miralax (For Daily Use) - PO 17 gm DAILY MENDY Administration Promethazine HCl 12.5 mg 08/05/18 16:21 Phenergan Injection - IVPB Q6H PRN NAUSEA AND/OR VOMITING Senna 2 tab 08/09/18 22:00 08/09/18 22:14 Senna - PO 2 tab HS MENDY Administration Simethicone 80 mg 08/06/18 08:48 08/07/18 22:23 Mylicon - PO 80 mg Q4H PRN Administration GAS ASSESSMENT/PLAN: Patient is a 48 year old male with a past medical history of chronic progressive back pain. He presented on 08/05/2018 for elective back surgery and is POD #5 of exploration of spinal fusion, removal or hardware and T3-T9 decompression (re- operative laminectomies and T3-T5) with multilevel transpedicle/costovertebral decompressoin T67, T78, T89, complete decompression behind T7, osteotomies, and T3-T9 posterior instrumented fusion and deformity correction. Surgery: Back Surgery, POD#5 Post op monitoring, vitals and labs stable., had bm but still c/o of constipation, will give mag citrate x 1 on oxycodone 5mg, 10mg prn. patient encouraged to increase ambulation which will help abdominal pain and constipation. incentive spirometer q1 hours encouraged physical therapy in a.m. Right shoulder pain, improved lidoderm applied to bilateral shoulders for discomfort fen: regular diet monitor electrolytes no ivf prophy: SCDs protonix simethicone Visit type - Emergency Visit Emergency Visit: Yes ED Registration Date: 08/05/18 Care time: The patient presented to the Emergency Department on the above date and was hospitalized for further evaluation of their emergent condition. - New Patient This patient is new to me today: No - Critical Care Critical Care patient: No - Discharge Referral Referred to [facility] Med P.C.: No
[2018-08-10] MEDS: ACETAMINOPHEN 325 MG TABLET (FP) PO PRN (14:29)
[2018-08-10] MEDS: LACTATED RINGERS SOLUTION 1,000 ML/1,000 ML INFUS.BAG IV SCH (21:21)
[2018-08-10] MEDS: SENNOSIDES 8.6MG TABLET (FP) PO SCH (21:24)
[2018-08-10] MEDS: LIDOCAINE PATCH REMOVAL MC SCH (21:25)
[2018-08-10] MEDS: MELATONIN 5 MG TABLETS PO PRN (21:26)
[2018-08-11] MEDS: HEPARIN NA (PORCINE) 5,000 UNITS/ML 1ML VIAL SQ SCH ×3 (06:28→21:29)
[2018-08-11] MEDS: DOCUSATE SODIUM 100 MG CAPSULE (FP) PO SCH ×3 (06:28→21:29)
[2018-08-11] MEDS: LIDOCAINE 5% TOPICAL PATCH TP SCH ×2 (08:46→11:14)
--- NOTE | 2018-08-11 09:43 | PN ---
Progress Note (short form) - Note Progress Note: POD 5, s/p T3-T9 Exploration of spinal fusion, removal or hardware and T3-T9 decompression (re-operative laminectomies and T3-T5) with multilevel transpedicle/costovertebral decompressoin T67, T78, T89, Including complete decompression behind T7, osteotomies, and T3-T9 posterior instrumented fusion and deformity correction Pt seen and examined. Continues to have significant abdominal pain, reports currently 04/01. received mag citrate yesterday with 2 small/hard bowel movements. Has been passing flatus with improvement in pain. Has been voiding without issue. OOB yesterday minimally due to back pain. Has decreased PO intake due to abdominal pain. Endorses burning in his rle which was present prior to sx. Denies cp, sob, n/v/d, calf pain or edema. Vital Signs Temp 97.9 F 08/11/18 04:00 Pulse 69 08/11/18 04:00 Resp 20 08/11/18 04:00 BP 123/66 08/11/18 04:00 Pulse Ox 100 08/10/18 21:00 Intake & Output 08/10/18 08/10/18 08/11/18 11:59 23:59 11:59 Intake Total 200 Output Total 50 260 Balance 150 -260 Intake: Oral 200 Output: Drainage 50 260 Medial Back 50 260 Other: Voiding Method Toilet Toilet # Unmeasured Voids Void 2 2 CBC, BMP 08/09/18 08:40 08/09/18 08:40 Gen: awake, alert, nad Resp: cta b/l CV: rrr, s1s2 Abdomen: distended but soft, + ttp in all quadrants, + bowel sounds. Back: upper back dressing c/d/i, no strikethrough noted. Drain to bile bag with approx 30cc serosanguinous drainage in bag. UE/LE's: b/l ue's 5/5 biceps/triceps/deltoids. b/l le's 5/5 dorsiflexion/ plantar flexion hip flexion/extension. SILT bilateral lower ext and upper ext. A/P: 48 y/o M w/ Chronic progressive back pain x 10 years now s/p thoracic (T3- T5) and lumbar (L2-L5) fusions @ 8 years ago at [facility], now POD 5, s/p T3-T9 Exploration of spinal fusion, removal or hardware and T3-T9 decompression (re- operative laminectomies and T3-T5) with multilevel transpedicle/costovertebral decompressoin T67, T78, T89, Including complete decompression behind T7, osteotomies, and T3-T9 posterior instrumented fusion and deformity correction. Afebrile, vss. MAURICIO output 50 overnight approx 30cc serosanguinous drainage in bile bag at AM rounds. Continues to have abdominal pain and distention despite bowel regimen and BMS -Abdo xray -Will d/c drain later today -Feosol and oxy d/c'ed -Pain control with Ultram 50mg q4hrs prn pain, Tylenol increased to 1g q6hrs, gabapentin 100mg ordered -DVT prophylaxis with Heparin sq 5000units q8hrs, scds, ambulation -Bowel regimen -oob, PT -Incentive spirometry -VS per routine above d/w attending Dr Cervantes
[2018-08-11] MEDS ORDERED: ACETAMINOPHEN 500 MG TABLET (FP) PO PRN (09:47)
[2018-08-11] MEDS ORDERED: GABAPENTIN 100 MG CAPSULE (FP) PO ONE (11:00)
[2018-08-11] MEDS: POLYETHYLENE GLYCOL 3350 119 GM BTL PO SCH (11:15)
[2018-08-11] MEDS: FOLIC ACID 1 MG TABLET (FP) PO SCH (11:15)
[2018-08-11] MEDS: traMADol HCL 50 MG TABLET PO PRN (11:15)
[2018-08-11] MEDS: PANTOPRAZOLE 40 MG TABLET (FP) PO SCH (11:15)
[2018-08-11] MEDS: FERROUS SO4 325 MG TABLET (FP) PO SCH (11:24)
[2018-08-11 11:43] LABS: BASO % 0.6 % (0-2.0); EOS % 2.1 % (0-4.5); HEMATOCRIT 32.4 % (35.4-49); HEMOGLOBIN 11.3 GM/dL (11.7-16.9); LYMPH % 26.8 % (8-40); MCH 30.8 pg (25.7-33.7); MCHC 34.9 g/dl (32.0-35.9); MEAN CELL VOLUME 88.3 fl (80-96); MEAN PLT VOLUME 8.8 fl (7.5-11.1); MONO % 7.6 % (3.8-10.2); NEUT % 62.9 % (42.8-82.8); PLATELET COUNT 263 K/MM3 (134-434); RBC 3.66 M/mm3 (4.00-5.60); WHITE BLOOD COUNT 5.1 K/mm3 (4.0-10.0)
[2018-08-11 12:18] LABS: ALBUMIN 3.5 g/dl (3.4-5.0); ALK PHOS 87 U/L (45-117); ANION GAP 8 MMOL/L (8-16); BILIRUBIN,TOTAL 0.4 mg/dL (0.2-1); BLOOD UREA NITROGEN 15 mg/dL (7-18); CALCIUM 8.6 mg/dL (8.5-10.1); CHLORIDE 102 mmol/L (98-107); CO2 28 mmol/L (21-32); CREATININE 0.9 mg/dL (0.55-1.3); GLUCOSE,RANDOM 96 mg/dL (74-106); POTASSIUM 4.3 mmol/L (3.5-5.1); SGOT/AST 34 U/L (15-37); SGPT/ALT 49 U/L (13-61); SODIUM 138 mmol/L (136-145); TOT PROT 7.2 g/dl (6.4-8.2)
--- NOTE | 2018-08-11 14:34 | CONSULT ---
Consult Consult Specialty:: General Surgery Reason for Consultation:: abdominal pain - History of Present Illness Chief Complaint: abdominal pain History of Present Illness: 48yo male PMH Chronic progressive back pain x 10 years presents for elective surgery. Patient had thoracic (T3-T5) and lumbar (L2-L5) fusions @ [address] 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 He describes episodes of intermittent paresthesias and worsening weakness resulting in falls. He denies any bladder of bowel dysfunction. He has not had a bowel movement in 2 days, he has been on frequent opiate pain medication (ultram) to manage his operative site pain. We were asked to assessed. - History Source History Provided By: Patient, Medical Record Limitations to Obtaining History: No Limitations - Alcohol/Substance Use Hx Alcohol Use: Yes (social) - Smoking History Smoking history: Never smoked Home Medications - Allergies Allergies/Adverse Reactions: Allergies Allergy/AdvReac Type Severity Reaction Status Date / Time apple Allergy Unknown Verified 08/10/18 10:14 lentils Allergy Unknown Verified 08/10/18 10:14 pear Allergy Verified 08/08/18 14:11 - Home Medications Home Medications: Ambulatory Orders NK [No Known Home Medication] 07/31/18 Review of Systems - Review of Systems Constitutional: denies: Chills, Fever Eyes: denies: Blind Spots, Recent Change in Vision HENT: denies: Difficult Swallowing, Throat Pain Neck: denies: Decreased ROM, Tenderness Cardiovascular: denies: Chest Pain, Palpitations Respiratory: denies: Cough, SOB Gastrointestinal: reports: Abdominal Pain, Constipation Genitourinary: denies: Burning, Discharge, Dysuria Breasts: reports: No Symptoms Reported. denies: Pain Musculoskeletal: reports: Back Pain. denies: Muscle Pain, Muscle Cramps Integumentary: denies: Blister, Bruising Neurological: denies: Syncope, Tremors Endocrine: denies: Unexplained Weight Gain, Unexplained Weight Loss Hematology/Lymphatic: denies: Easily Bruised, Excessive Bleeding Psychiatric: denies: Anxiety, Depression Physical Exam Vital Signs: Vital Signs Temperature 98.3 F 08/11/18 14:11 Pulse Rate 78 08/11/18 14:11 Respiratory Rate 18 08/11/18 14:11 Blood Pressure 127/70 08/11/18 14:11 O2 Sat by Pulse Oximetry (%) 100 08/10/18 21:00 Constitutional: Yes: Well Nourished, No Distress, Calm, Obese Eyes: Yes: Conjunctiva Clear, EOM Intact HENT: Yes: Atraumatic, Normocephalic Neck: Yes: Supple, Trachea Midline Cardiovascular: Yes: Regular Rate and Rhythm, S1, S2 Respiratory: Yes: Regular, CTA Bilaterally Gastrointestinal: Yes: Normal Bowel Sounds, Soft, Abdomen, Obese, Distention, Tenderness (Discomfort diffuselfy, no focal tenderness). No: Tenderness, Epigastrium, Tenderness, Rebound ...Rectal Exam: No: Deferred Renal/: No: CVA Tenderness - Left, CVA Tenderness - Right Extremities: No: Cool, Cyanosis Edema: No Peripheral Pulses WNL: Yes Integumentary: No: Incision, Jaundice, Rash Neurological: Yes: Alert, Oriented Psychiatric: Yes: Alert, Oriented Labs: CBC, BMP 08/11/18 11:23 08/11/18 11:23 Imaging - Results X-ray: Report Reviewed (Abdominal xray is diffuse gas pattern. large and small bowel.), Image Reviewed Problem List - Problems (1) Constipation due to opioid therapy Assessment/Plan: 48yo male with constipation secondary to opiate therapy causing pain and distension and discomfort of exam. he does not have peritonitis. There is no indication for acute surgical intervention. Adequate IV and oral hydration increase dietary fiber GI eval for Constipation bowel regimen to be taken in conjunction with Opiates Colace & miralax Biscadyl suppositories encourage ambulation recall as needed Thank you for the opportunity to participate in the care of this patient. Code(s): K59.03 - DRUG INDUCED CONSTIPATION; T40.2X5A - ADVERSE EFFECT OF OTHER OPIOIDS, INITIAL ENCOUNTER (2) Chronic back pain greater than 3 months duration Code(s): M54.9 - DORSALGIA, UNSPECIFIED; G89.29 - OTHER CHRONIC PAIN (3) Thoracic spondylosis Code(s): M47.814 - SPONDYLOSIS W/O MYELOPATHY OR RADICULOPATHY, THORACIC REGION (4) Abdominal pain in male Code(s): R10.9 - UNSPECIFIED ABDOMINAL PAIN
--- NOTE | 2018-08-11 15:55 | PN ---
Physical Exam: SUBJECTIVE: Patient seen and examined at the bedside. still c/o of abdominal pain, mild nausea. OBJECTIVE: abdominal xray shows air fluid levels seen both in the colon and in the small bowel. pt seen by surgery (Dr. Pardo). made npo except for meds Vital Signs Period Temp Pulse Resp BP Sys/Augustin Pulse Ox Last 24 Hr 97.9 F-98.3 F 69-79 18-20 123-143/65-77 100 GENERAL: awake, alert, in no acute distress. HEAD: Normal with no signs of trauma. EYES: PERRL, extraocular movements intact, sclera anicteric, conjunctiva clear. No ptosis. ENT: Ears normal, nares patent, oropharynx clear without exudates, moist mucous membranes. NECK: Trachea midline, full range of motion, supple. LUNGS: Breath sounds equal, clear to auscultation bilaterally HEART: Regular rate and rhythm ABDOMEN: soft, mildly tender to touch, no nausea or vomiting. abdominal xray as noted above. pt now npo EXTREMITIES: no edema. right arm no longer painful or tender. lidoderm patch helping. NEUROLOGICAL: Normal speech, gait not observed. PSYCH: Normal mood, normal affect. Laboratory Results - last 24 hr 08/11/18 08/11/18 08/11/18 11:23 11:23 11:23 WBC 5.1 RBC 3.66 L Hgb 11.3 L Hct 32.4 L MCV 88.3 MCH 30.8 MCHC 34.9 RDW 14.0 Plt Count 263 D MPV 8.8 Absolute Neuts (auto) 3.2 Neutrophils % 62.9 Lymphocytes % 26.8 Monocytes % 7.6 Eosinophils % 2.1 Basophils % 0.6 Nucleated RBC % 0 Sodium 138 Potassium 4.3 Chloride 102 Carbon Dioxide 28 Anion Gap 8 BUN 15 Creatinine 0.9 Creat Clearance w eGFR > 60 Random Glucose 96 Lactic Acid 0.9 Calcium 8.6 Total Bilirubin 0.4 AST 34 ALT 49 Alkaline Phosphatase 87 Total Protein 7.2 Albumin 3.5 Active Medications Generic Name Dose Route Start Last Admin Trade Name Freq PRN Reason Stop Dose Admin Acetaminophen 1,000 mg 08/11/18 09:47 Tylenol - PO Q6H PRN PAIN OR FEVER Benzocaine/Menthol 1 each 08/09/18 18:53 Cepacol Lozenge - MM PRN PRN SORE THROAT Dexamethasone Sodium Phosphate 4 mg 08/05/18 16:21 Decadron Injection - IVPUSH ONCE PRN NAUSEA AND/OR VOMITING Diphenhydramine HCl 25 mg 08/05/18 16:33 Benadryl - PO Q6H PRN FOR ITCHING Docusate Sodium 100 mg 08/05/18 22:00 08/11/18 14:20 Colace - PO 100 mg TID MENDY Administration Folic Acid 1 mg 08/06/18 10:00 08/11/18 11:15 Folic Acid - PO 1 mg DAILY MENDY Administration Heparin Sodium (Porcine) 5,000 unit 08/05/18 22:00 08/11/18 14:20 Heparin - SQ 5,000 unit TID MENDY Administration Lactated Ringer's 1,000 ml in 1,000 mls @ 125 mls/hr 08/05/18 16:45 08/10/18 21:21 Lactated Ringers Solution IV Not Given ASDIR MENDY Lidocaine 2 patch 08/09/18 08:50 08/11/18 11:14 Lidoderm Patch - TP Not Given DAILY MENDY Melatonin 5 mg 08/09/18 08:49 08/10/18 21:26 Melatonin PO 5 mg HS PRN Administration INSOMNIA Miscellaneous 1 each 08/06/18 22:00 08/10/18 21:25 Lidoderm Patch Removal MC 1 each DAILY@2200 MENDY Administration Ondansetron HCl 4 mg 08/05/18 16:33 08/10/18 08:58 Zofran Injection IVPUSH 4 mg Q6H PRN Administration NAUSEA Pantoprazole Sodium 40 mg 08/06/18 10:00 08/11/18 11:15 Protonix - PO 40 mg DAILY MENDY Administration Polyethylene Glycol 17 gm 08/06/18 10:00 08/11/18 11:15 Miralax (For Daily Use) - PO 17 gm DAILY MENDY Administration Promethazine HCl 12.5 mg 08/05/18 16:21 Phenergan Injection - IVPB Q6H PRN NAUSEA AND/OR VOMITING Senna 2 tab 08/09/18 22:00 08/10/18 21:24 Senna - PO 2 tab HS MENDY Administration Simethicone 80 mg 08/06/18 08:48 08/07/18 22:23 Mylicon - PO 80 mg Q4H PRN Administration GAS Tramadol HCl 50 mg 08/11/18 09:46 08/11/18 11:15 Ultram - PO 50 mg Q4H PRN Administration PAIN LEVEL 1-5 ASSESSMENT/PLAN: Patient is a 48 year old male with a past medical history of chronic progressive back pain. He presented on 08/05/2018 for elective back surgery and is POD #6 of exploration of spinal fusion, removal or hardware and T3-T9 decompression (re- operative laminectomies and T3-T5) with multilevel transpedicle/costovertebral decompressoin T67, T78, T89, complete decompression behind T7, osteotomies, and T3-T9 posterior instrumented fusion and deformity correction. Surgery: Back Surgery, POD#6 Post op monitoring, vitals and labs stable., had bm but still c/o of constipation and abdominal pain. abdominal xray shows air fluid levels seen both in the colon and in the small bowel. pt seen by surgery (Dr. Pardo). made npo except for meds patient encouraged to increase ambulation which will help abdominal pain and constipation. incentive spirometer q1 hours encouraged physical therapy Right shoulder pain, improved lidoderm applied to bilateral shoulders for discomfort fen: npo monitor electrolytes ivf prophy: SCDs Visit type - Emergency Visit Emergency Visit: Yes ED Registration Date: 08/05/18 Care time: The patient presented to the Emergency Department on the above date and was hospitalized for further evaluation of their emergent condition. - New Patient This patient is new to me today: No - Critical Care Critical Care patient: No - Discharge Referral Referred to [facility] Med P.C.: No
[2018-08-11] MEDS: SODIUM CHLORIDE 1,000 ML IV SCH (16:55)
[2018-08-11] MEDS: LIDOCAINE PATCH REMOVAL MC SCH (21:29)
[2018-08-11] MEDS: SENNOSIDES 8.6MG TABLET (FP) PO SCH (21:29)
[2018-08-12] MEDS: traMADol HCL 50 MG TABLET PO PRN ×3 (00:59→14:28)
[2018-08-12] MEDS: MELATONIN 5 MG TABLETS PO PRN (01:00)
[2018-08-12] MEDS: DOCUSATE SODIUM 100 MG CAPSULE (FP) PO SCH ×3 (05:51→21:26)
[2018-08-12] MEDS: HEPARIN NA (PORCINE) 5,000 UNITS/ML 1ML VIAL SQ SCH ×3 (05:51→21:26)
--- NOTE | 2018-08-12 08:07 | PN ---
Progress Note (short form) - Note Progress Note: POD 6, s/p T3-T9 Exploration of spinal fusion, removal or hardware and T3-T9 decompression (re-operative laminectomies and T3-T5) with multilevel transpedicle/costovertebral decompressoin T67, T78, T89, Including complete decompression behind T7, osteotomies, and T3-T9 posterior instrumented fusion and deformity correction Pt seen and examined. Continues to have significant abdominal pain, reports currently 04/01. No BMs yesterday. Has been NPO per gen surg reccs. Reports passing flatus with minimal improvement in pain. Has been voiding without issue. OOB yesterday minimally due to back pain. Reports burning in his rle has slightly improved. Denies cp, sob, n/v/d, calf pain or edema. Vital Signs Temp 97.9 F 08/12/18 05:00 Pulse 66 08/12/18 05:00 Resp 20 08/12/18 05:00 BP 100/52 L 08/12/18 05:00 Pulse Ox 100 08/11/18 20:27 Intake & Output 08/11/18 08/11/18 08/12/18 11:59 23:59 11:59 Intake Total 375 855 Output Total 100 40 Balance 275 815 Intake: IV 75 825 Normal Saline - 1,000 ml 75 825 @ 75 mls/hr IV ASDIR MENDY Rx#:[id number] Oral 300 30 Output: Drainage 100 40 Medial Back 100 40 Other: Voiding Method Toilet Toilet # Unmeasured Voids Void 2 3 Bowel Movement No CBC, BMP 08/11/18 11:23 08/11/18 11:23 Gen: awake, alert, nad Resp: cta b/l CV: rrr, s1s2 Abdomen: distended but soft, + ttp in all quadrants, hypoactive bowel sounds. Back: upper back dressing c/d/i, no strikethrough noted. Drain to bile bag with approx 5cc serosanguinous drainage in bag. UE/LE's: b/l ue's 5/5 biceps/triceps/deltoids. b/l le's 5/5 dorsiflexion/ plantar flexion hip flexion/extension. SILT bilateral lower ext and upper ext. A/P: 48 y/o M w/ Chronic progressive back pain x 10 years now s/p thoracic (T3- T5) and lumbar (L2-L5) fusions @ 8 years ago at [facility], now POD 6, s/p T3-T9 Exploration of spinal fusion, removal or hardware and T3-T9 decompression (re- operative laminectomies and T3-T5) with multilevel transpedicle/costovertebral decompressoin T67, T78, T89, Including complete decompression behind T7, osteotomies, and T3-T9 posterior instrumented fusion and deformity correction. Afebrile, vss. MAURICIO output 40 overnight approx 5cc serosanguinous drainage in bile bag at AM rounds. Continues to have abdominal pain and distention despite bowel regimen and BMS Abdo xray done yesterday : air fluid levels in colon and small bowel, no free air, slightly less distended than prior imaging -Will d/c drain later today -Pain control with Ultram 50mg q4hrs prn pain, Tylenol increased to 1g q6hrs, gabapentin 100mg qd (may increase as needed) -DVT prophylaxis with Heparin sq 5000units q8hrs, scds, ambulation -Bowel regimen -oob, PT -Incentive spirometry -VS per routine -Appreciate gen surgery reccs above d/w attending Dr Cervantes
--- NOTE | 2018-08-12 08:49 | PN ---
Progress Note (short form) - Note Progress Note: Patient is able to pass gas but unable to go for #2, c/o having LUQ pain. and asking for food. Vital Signs Temperature 97.9 F 08/12/18 05:00 Pulse Rate 66 08/12/18 05:00 Respiratory Rate 20 08/12/18 05:00 Blood Pressure 100/52 L 08/12/18 05:00 O2 Sat by Pulse Oximetry (%) 100 08/11/18 20:27 GENERAL: awake, alert, in no acute distress. HEAD: Normal with no signs of trauma. EYES: PERRL, extraocular movements intact, sclera anicteric, conjunctiva clear. ENT: Ears normal, oropharynx clear without exudates, moist mucous membranes. NECK: Trachea midline, full range of motion, supple. LUNGS: Breath sounds equal, clear to auscultation bilaterally HEART: Regular rate and rhythm ABDOMEN: soft, mildly tender to touch, no nausea or vomiting. abdominal xray as noted above. NPO NEUROLOGICAL: Normal speech, gait not observed. PSYCH: Normal mood, normal affect. CBCD WBC 5.1 K/mm3 (4.0-10.0) 08/11/18 11:23 RBC 3.66 M/mm3 (4.00-5.60) L 08/11/18 11:23 Hgb 11.3 GM/dL (11.7-16.9) L 08/11/18 11:23 Hct 32.4 % (35.4-49) L 08/11/18 11:23 MCV 88.3 fl (80-96) 08/11/18 11:23 MCHC 34.9 g/dl (32.0-35.9) 08/11/18 11:23 RDW 14.0 % (11.9-15.9) 08/11/18 11:23 Plt Count 263 K/MM3 (134-434) D 08/11/18 11:23 MPV 8.8 fl (7.5-11.1) 08/11/18 11:23 CMP Sodium 138 mmol/L (136-145) 08/11/18 11:23 Potassium 4.3 mmol/L (3.5-5.1) 08/11/18 11:23 Chloride 102 mmol/L (98-107) 08/11/18 11:23 Carbon Dioxide 28 mmol/L (21-32) 08/11/18 11:23 Anion Gap 8 MMOL/L (8-16) 08/11/18 11:23 BUN 15 mg/dL (7-18) 08/11/18 11:23 Creatinine 0.9 mg/dL (0.55-1.3) 08/11/18 11:23 Creat Clearance w eGFR > 60 (>60) 08/11/18 11:23 Random Glucose 96 mg/dL (74-106) 08/11/18 11:23 Calcium 8.6 mg/dL (8.5-10.1) 08/11/18 11:23 Total Bilirubin 0.4 mg/dL (0.2-1) 08/11/18 11:23 AST 34 U/L (15-37) 08/11/18 11:23 ALT 49 U/L (13-61) 08/11/18 11:23 Alkaline Phosphatase 87 U/L (45-117) 08/11/18 11:23 Total Protein 7.2 g/dl (6.4-8.2) 08/11/18 11:23 Albumin 3.5 g/dl (3.4-5.0) 08/11/18 11:23 Current Medications Generic Name Dose Route Start Last Admin Trade Name Charlyq PRN Reason Stop Dose Admin Acetaminophen 1,000 mg 08/11/18 09:47 Tylenol - PO Q6H PRN PAIN OR FEVER Benzocaine/Menthol 1 each 08/09/18 18:53 Cepacol Lozenge - MM PRN PRN SORE THROAT Dexamethasone Sodium Phosphate 4 mg 08/05/18 16:21 Decadron Injection - IVPUSH ONCE PRN NAUSEA AND/OR VOMITING Diphenhydramine HCl 25 mg 08/05/18 16:33 Benadryl - PO Q6H PRN FOR ITCHING Docusate Sodium 100 mg 08/05/18 22:00 08/12/18 05:51 Colace - PO 100 mg TID MENDY Administration Gabapentin 100 mg 08/12/18 10:00 Neurontin - PO DAILY MENDY Heparin Sodium (Porcine) 5,000 unit 08/05/18 22:00 08/12/18 05:51 Heparin - SQ 5,000 unit TID MENDY Administration Lactated Ringer's 1,000 ml in 1,000 mls @ 125 mls/hr 08/05/18 16:45 08/10/18 21:21 Lactated Ringers Solution IV Not Given ASDIR MENDY Sodium Chloride 1,000 mls @ 75 mls/hr 08/11/18 16:15 08/11/18 16:55 Normal Saline - IV 75 mls/hr ASDIR MENDY Administration Lidocaine 2 patch 08/09/18 08:50 08/11/18 11:14 Lidoderm Patch - TP Not Given DAILY MENDY Melatonin 5 mg 08/09/18 08:49 08/12/18 01:00 Melatonin PO 5 mg HS PRN Administration INSOMNIA Miscellaneous 1 each 08/06/18 22:00 08/11/18 21:29 Lidoderm Patch Removal MC Not Given DAILY@2200 MENDY Ondansetron HCl 4 mg 08/05/18 16:33 08/10/18 08:58 Zofran Injection IVPUSH 4 mg Q6H PRN Administration NAUSEA Polyethylene Glycol 17 gm 08/06/18 10:00 08/11/18 11:15 Miralax (For Daily Use) - PO 17 gm DAILY MENDY Administration Promethazine HCl 12.5 mg 08/05/18 16:21 Phenergan Injection - IVPB Q6H PRN NAUSEA AND/OR VOMITING Senna 2 tab 08/09/18 22:00 08/11/18 21:29 Senna - PO 2 tab HS MENDY Administration Simethicone 80 mg 08/06/18 08:48 08/07/18 22:23 Mylicon - PO 80 mg Q4H PRN Administration GAS Tramadol HCl 50 mg 08/11/18 09:46 08/12/18 00:59 Ultram - PO 50 mg Q4H PRN Administration PAIN LEVEL 1-5 Home Medications Medication Instructions Recorded NK [No Known Home Medication] 07/31/18 ASSESSMENT/PLAN: Patient is a 48 year old male with a past medical history of chronic progressive back pain presented for elective surgery . # POD #7 of exploration of spinal fusion, removal or hardware and T3-T9 decompression (re-operative laminectomies and T3-T5) with multilevel transpedicle/costovertebral decompressoin T67, T78, T89, complete decompression behind T7, osteotomies, and T3-T9 posterior instrumented fusion and deformity correction. # Acute constipation on pain meds, on Miralax , colace 100mg po tid, with air fluid level on the abdominal xray ; will repeat the xray for resolution , since the patient is nPO, on ivf, will repeat the xray of the abdomen for follow up since was found to have an abdominal xray shows air fluid levels seen both in the colon and in the small bowel. pt has seen by surgery (Dr. Pardo). made npo except for meds. Patient encouraged to increase ambulation which will help abdominal pain and constipation. Incentive spirometer q1 hours encouraged, physical therapy # Right shoulder pain, improved, on lidoderm applied to bilateral shoulders for discomfort. continue npo, ivf DVT px: SCDs repeat abdominal xray. Visit type - Emergency Visit Emergency Visit: Yes ED Registration Date: 08/05/18 Care time: The patient presented to the Emergency Department on the above date and was hospitalized for further evaluation of their emergent condition. - New Patient This patient is new to me today: Yes Date on this admission: 08/12/18 - Critical Care Critical Care patient: No - Discharge Referral Referred to [facility] Med P.C.: No
[2018-08-12] MEDS ORDERED: PT OWN MED DRAWER 7, Y5N ONE ×2 (09:31→16:42)
[2018-08-12] MEDS: POLYETHYLENE GLYCOL 3350 119 GM BTL PO SCH (09:39)
[2018-08-12] MEDS: GABAPENTIN 100 MG CAPSULE (FP) PO SCH (09:39)
[2018-08-12] MEDS: LIDOCAINE 5% TOPICAL PATCH TP SCH (09:40)
[2018-08-12] MEDS ORDERED: BISACODYL 10 MG SUPP.RECT RC PRN (10:00)
[2018-08-12 11:32] LABS: BASO % 0.6 % (0-2.0); EOS % 1.9 % (0-4.5); HEMATOCRIT 32.4 % (35.4-49); HEMOGLOBIN 11.2 GM/dL (11.7-16.9); LYMPH % 27.3 % (8-40); MCH 31.1 pg (25.7-33.7); MCHC 34.6 g/dl (32.0-35.9); MEAN CELL VOLUME 89.7 fl (80-96); MEAN PLT VOLUME 9.2 fl (7.5-11.1); MONO % 6.4 % (3.8-10.2); NEUT % 63.8 % (42.8-82.8); PLATELET COUNT 267 K/MM3 (134-434); RBC 3.61 M/mm3 (4.00-5.60); RDW 13.8 % (11.9-15.9); WHITE BLOOD COUNT 5.4 K/mm3 (4.0-10.0)
[2018-08-12 12:13] LABS: ALBUMIN 3.4 g/dl (3.4-5.0); ALK PHOS 87 U/L (45-117); ANION GAP 11 MMOL/L (8-16); BILIRUBIN,TOTAL 0.5 mg/dL (0.2-1); BLOOD UREA NITROGEN 19 mg/dL (7-18); CALCIUM 8.4 mg/dL (8.5-10.1); CHLORIDE 102 mmol/L (98-107); CO2 26 mmol/L (21-32); CREATININE 0.9 mg/dL (0.55-1.3); GLUCOSE,RANDOM 83 mg/dL (74-106); MAGNESIUM 2.6 mg/dL (1.8-2.4); POTASSIUM 4.2 mmol/L (3.5-5.1); SGOT/AST 29 U/L (15-37); SGPT/ALT 48 U/L (13-61); SODIUM 138 mmol/L (136-145)
[2018-08-12] MEDS ORDERED: LIDOCAINE HCL 2% (50ML VIAL) SQ ONE (13:32)
[2018-08-12] MEDS ORDERED: LIDOCAINE HCL 1%, 10 MG/ML (20ML VIAL) ONE (15:43)
[2018-08-12] MEDS: LACTATED RINGERS SOLUTION 1,000 ML/1,000 ML INFUS.BAG IV SCH (17:29)
[2018-08-12] MEDS: SENNOSIDES 8.6MG TABLET (FP) PO SCH (21:26)
[2018-08-12] MEDS: LIDOCAINE PATCH REMOVAL MC SCH (21:27)
[2018-08-12] MEDS: SODIUM CHLORIDE 1,000 ML IV SCH (22:13)
[2018-08-13] MEDS: DOCUSATE SODIUM 100 MG CAPSULE (FP) PO SCH ×2 (05:44→13:39)
[2018-08-13] MEDS: HEPARIN NA (PORCINE) 5,000 UNITS/ML 1ML VIAL SQ SCH ×2 (05:44→13:40)
[2018-08-13] MEDS ORDERED: INSULIN (NOVOLOG) ASPART 100 UNITS/ML 10ML VIAL ONE (07:03)
[2018-08-13] MEDS ORDERED: PT OWN MED DRAWER 7, Y5N ONE (09:42)
[2018-08-13] MEDS: POLYETHYLENE GLYCOL 3350 119 GM BTL PO SCH (09:46)
[2018-08-13] MEDS: LIDOCAINE 5% TOPICAL PATCH TP SCH (09:47)
[2018-08-13] MEDS: GABAPENTIN 100 MG CAPSULE (FP) PO SCH (09:47)
[2018-08-13] MEDS: traMADol HCL 50 MG TABLET PO PRN (09:50)
--- NOTE | 2018-08-13 10:54 | PN ---
Progress Note (short form) - Note Progress Note: POD #6 s/p Exploration of spinal fusion, removal or hardware and T3-T9 decompression ( re-operative laminectomies and T3-T5) with multilevel transpedicle/ costovertebral decompressoin T67, T78, T89, Including complete decompression behind T7, osteotomies, and T3-T9 posterior instrumented fusion and deformity correction Doing well. States he wants to go home. ABD discomfort greatly diminished compared to previous exams. Continues to pass flatus and BMs Ambulating. Voiding. RLE "burning sensation" greatly improved. Denies n/v/f/c, CP, palpitations, SOB, KEARNS, numbness/tingling/weakness to his extremities. Last Vital Signs Temp Pulse Resp BP Pulse Ox 98 F 71 18 113/88 100 //18 08:05 08/13/18 08:05 08/13/18 08:05 08/13/18 08:05 08/12/18 20:47 Gen: nad ABD: softly distended. + bowel sounds Back: dressing c/d/i. Neuro: GMNVI bilat Problem List - Problems (1) Chronic back pain greater than 3 months duration Assessment/Plan: POD #6 Patient recovering s/p spine surgery. States he WANTS to go home today. Dr. Cervantes saw/examined patient this morning and said he is comfortable with patient's choice for departure today. -Pain control 1. Ultram 50mg q4hrs prn pain 2. Gabapentin 100mg qd f/u instructions in dc planning section Code(s): M54.9 - DORSALGIA, UNSPECIFIED; G89.29 - OTHER CHRONIC PAIN (2) Constipation due to opioid therapy Code(s): K59.03 - DRUG INDUCED CONSTIPATION; T40.2X5A - ADVERSE EFFECT OF OTHER OPIOIDS, INITIAL ENCOUNTER
[2018-08-13] MEDS: SODIUM CHLORIDE 1,000 ML IV SCH (11:35)
--- NOTE | 2018-08-13 13:46 | DS ---
Physical Examination Vital Signs: Vital Signs Temperature 98 F 08/13/18 08:05 Pulse Rate 71 08/13/18 08:05 Respiratory Rate 18 08/13/18 08:05 Blood Pressure 113/88 08/13/18 08:05 O2 Sat by Pulse Oximetry (%) 100 08/12/18 20:47 ...Rectal Exam: Yes: Deferred Musculoskeletal: Yes: Other (+TLSO Brace) Edema: No Wound/Incision: Yes: Dressing Dry and Intact Labs: CBC, BMP 08/12/18 10:35 08/12/18 10:35 Discharge Summary Reason For Visit: THORACIC SPONDYLOSIS,KYPHOSIS Current Active Problems Abdominal pain in male (Acute) Chronic back pain greater than 3 months duration (Acute) Constipation due to opioid therapy (Acute) Thoracic spondylosis (Acute) Hospital Course: 48 year old male with a history of chronic progressive back pain, admitted to [facility] from 08/05/2018 - 08/13/18 for elective exploration of spinal fusion, removal or hardware and T3-T9 decompression (re-operative laminectomies and T3- T5) with multilevel transpedicle/costovertebral decompressoin T67, T78, T89, complete decompression behind T7, osteotomies, and T3-T9 posterior instrumented fusion and deformity correction by Dr. Cervantes. Posterior lumbar drain removed POD 3. Post op course notable for constipation and abdominal pain. Abdominal xrays showed air fluid levels seen both in the colon and in the small bowel. He was made npo except for medications. Repeat x- ays were not greatly changed. Pneumatosis or free air not seen. Patient given a meal of clears which he tolerated well. He had one bowel movement during his stay and passed flatus. He ambulated with PT. Patient discharged with Ultram 50mg q4hrs prn pain and Gabapentin 100mg qd for pain. F/u with Dr. Durham's office Condition: Stable - Instructions Diet, Activity, Other Instructions: Post Operative Instructions Physical Activity Resume your normal everyday activity as tolerated. No heavy lifting or exercise until seen by your surgeon. You may walk unlimited amounts and climb stairs. You may resume driving the car when you feel safe and comfortable behind the wheel and you are no longer wearing your brace. Do not operate a vehicle while taking narcotic medication. Brace If you had back surgery, wear TLSO Brace whenever out of bed. May remove to sleep and shower. Wound Care Keep your incision clean, dry and covered at all times. Apply an occlusive dressing (Saran wrap or Tegaderm) when showering to avoid getting your incision wet. Do not submerge incision or apply ointments or creams. The jane will be removed in the office in 10-14 days post-op. Diet There are no dietary restrictions. Eat healthy, high-fiber foods. Drink 6-8 glasses of liquid each day. This will assist in keeping your bowels regular. Pain Management You may take Tylenol or acetaminophen. Any pain prescription medication ordered should be taken as prescribed for moderate to severe pain. Call Dr Vaca for any of the following: Severe pain not relieved by medication Fever of 101 or higher Excessive bleeding or drainage on dressing Inability to urinate Any chest pain or shortness of breath, seek Emergency Care. Call the office to confirm a post-operative appointment for 2-3 weeks post-op Latrell Cervantes MD [facility] [address] [place] [address] [place] [address] Disposition: HOME - Home Medications Comprehensive Discharge Medication List: Ambulatory Orders Gabapentin 100 mg PO QID #120 capsule 08/13/18 Tramadol HCl [Ultram] 50 mg PO Q4H #60 tablet MDD 6 08/13/18 This patient is new to me today: Yes Date on this admission: 08/13/18 Emergency Visit: No Critical Care patient: No - Discharge Referral Referred to [facility] Med P.C.: No
[2018-08-13 18:35] VITALS: BP 124/75; PULSE 73; TEMP 99
== END 2018-08-13 19:13 | disposition home or self-care (01) | DRG 454 ==
LOC: JSAMEDAYSX 05:31 → J8W 19:30
PROVIDERS: ADMIT Neurological Surgery; ATTEND Nurse Practitioner Adult Health
PROC: 0RP60AZ Removal of Interbody Fusion Device from Thoracic Vertebral Joint, Open Approach (ICD-10-PCS; principal; 2018-08-06)
PROC: 0RG70AJ Fusion of 2 to 7 Thoracic Vertebral Joints with Interbody Fusion Device, Posterior Approach, Anterior Column, Open Approach (ICD-10-PCS; 2018-08-06)
PROC: 0RG7071 Fusion of 2 to 7 Thoracic Vertebral Joints with Autologous Tissue Substitute, Posterior Approach, Posterior Column, Open Approach (ICD-10-PCS; 2018-08-06)
PROC: 0JX70ZC Transfer Back Subcutaneous Tissue and Fascia with Skin, Subcutaneous Tissue and Fascia, Open Approach (ICD-10-PCS; 2018-08-06)
PROC: 0HB6XZZ Excision of Back Skin, External Approach (ICD-10-PCS; 2018-08-06)
PROC: B01BZZZ Fluoroscopy of Spinal Cord (ICD-10-PCS; 2018-08-06)
DX: M40.204 Unspecified kyphosis, thoracic region (principal); Z68.41 Body mass index [BMI] 40.0-44.9, adult; M47.14 Other spondylosis with myelopathy, thoracic region; M47.814 Spondylosis without myelopathy or radiculopathy, thoracic region; M48.04 Spinal stenosis, thoracic region; M25.511 Pain in right shoulder; M54.9 Dorsalgia, unspecified; K59.03 Drug induced constipation; T40.2X5A Adverse effect of other opioids, initial encounter; G89.29 Other chronic pain; E66.01 Morbid (severe) obesity due to excess calories
CPT/HCPCS: 36415; 72128-TC; 74019-TC-FY; 80048; 80053; 83605; 83735; 85025; 85027; 86850; 86900; 86901; 88304-TC; 94760; 97116-GP; 97162-GP; J1644; J7030